=== PATIENT | male | born 1975 | race Caucasian/White ===

== ENCOUNTER 2022-09-16 15:08 | Outpatient (CLI) | payer OTHER, SELFPAY ==
[2022-09-16 11:42] LABS: Chloride* 106 mmol/L (96-114); Sodium* 141 mmol/L (135-149)
[2022-09-16 11:43] LABS: Potassium* 4.5 mmol/L (3.6-5.1)
[2022-09-16 11:45] LABS: Estimated Glomerular Filt Rate 95 ml/min
[2022-09-16 11:46] LABS: Blood Urea Nitrogen* 20 mg/dL (5-24); Calcium* 9.6 mg/dL (8.4-10.6); Carbon Dioxide* 28 mmol/L (20-32); Glucose* 85 mg/dL (60-115)
== END 2022-09-16 15:09 | disposition home or self-care (01) ==
PROVIDERS: PCP Family Medicine; Visit Provider Family Medicine
DX: I10 Essential (primary) hypertension (principal)
CPT/HCPCS: 80048

== ENCOUNTER 2025-02-14 07:30 | Outpatient (CLI) | payer OTHER, SELFPAY | END 2025-02-14 07:31 | disposition home or self-care (01) | LOC: NFLDREF 02-15 08:29 | PROVIDERS: PCP Family Medicine; Referring Provider Family Medicine; Visit Provider Family Medicine | DX: I10 Essential (primary) hypertension (principal) | CPT/HCPCS: 80053; 80061 ==

== ENCOUNTER 2025-03-15 15:54 | Emergency (ER) | payer OTHER, SELFPAY ==
[2025-03-15] VITALS (26 sets, daily range): BP systolic 111–156; BP diastolic 77–90; PULSE 98–135; RESP 16–37; TEMP 37.1; O2SAT 88–95; BMI 28.7
--- OUTSIDE RECORDS SUMMARY | 2025-03-15 15:56 | XMS_ITS | Clinical Summary ---
Author Organization [facility] Address [address] [place] [id number] Care Team Providers Care Pattern Cutter Name Role Phone Unavailable Primary Care Provider Unavailabl e Source Comments Patient records contain information from all sites at [facility]. For routine questions regarding patient records, call [phone] during business hours, M-F 8:00 AM - 5:00 PM Central Time. Record requests for emergency care only can be directed to [phone] at any time.[facility] Allergies Active Allergy Reactions Criticality Noted Date Comments Fentanyl Other (see comments) 07/15/2005 severe hiccups with vomiting Medications clopidogrel (PLAVIX) 75 mg tablet Take 1 tablet by mouth every morning. 8 Active losartan (COZAAR) 50 mg tablet Take 1 tablet by mouth daily. 8 Active busPIRone (BUSPAR) 10 mg tablet TAKE 2 TABLETS BY MOUTH TWICE DAILY FOR ANXIETY Active desvenlafaxine (PRISTIQ) 50 mg 24 hr tablet Take 50 mg by mouth every morning. Active gabapentin (NEURONTIN) 300 mg capsule Take 900 mg by mouth 3 (three) times a day. 3 Active lurasidone (LATUDA) 80 mg tablet Take 80 mg by mouth daily. with food 3 Active propranoloL (INDERAL LA) 60 mg 24 hr capsule Take 60 mg by mouth as needed. 3 Active scopolamine base (TRANSDERM SCOP) 1 mg over 3 days APPLY 1 PATCH TOPICALLY TO THE SKIN EVERY 72 HOURS NEEDED FOR MOTION SICKNESS 3 Active medical cannabis solution Medical Cannabis; 0.8 ml tincture taken once daily. 2 Active ARIPiprazole (ABILIFY) 5 mg tablet Take 5 mg by mouth once. 3 Active Active Problems Problem Noted Date Diagnosed Date Atrial Fibrillation Personal History 07/27/2023 Assessment & Plan (07/27/2023 9:13 AM CDT): Reports that he developed atrial fibrillation over the summer. He had a ZIO patch in March 2023 that he reports returned indicating approximately 150 events of atrial fibrillation. Not currently anticoagulated or on rate/rhythm control medications. He wears an apple watch that indicates 4-7% burden atrial fibrillation during waking hours. Embolus Pulmonary Personal History 07/27/2023 Assessment & Plan (07/27/2023 9:14 AM CDT): 2003. No further episodes. Depression Anxiety 07/27/2023 Assessment & Plan (07/27/2023 9:16 AM CDT): Treated with BuSpar, Pristiq, gabapentin, Latuda, and propranolol. He will continue all of the above perioperatively. He had been using medical cannabis however is no longer using. Solitary Kidney Acquired 05/08/2020 Assessment & Plan (07/27/2023 8:48 AM CDT): In the course of repair of a lower abdominal aneurysm patient underwent a left nephrectomy Cardiomegaly 05/08/2020 Assessment & Plan (07/27/2023 9:22 AM CDT): Per echo 05/2023: Normal left ventricular size, mildly increased wall thickness, normal global systolic function, calculated EF of 57%. He has noted that he has been short of breath. This is a longstanding symptom for him however has been worse in the past year. He has seen his retail account executive with these concerns and has had an appropriate work up without findings that would preclude him from his upcoming procedure. Peripheral Vascular Disease 05/08/2020 Assessment & Plan (07/27/2023 8:52 AM CDT): he had bilateral subclavian dissections requiring stent placement and carotid subclavian bypass on the right, with carotid subclavian bypass on the left with Amplatz plug placed proximally. He has a known stenosis of the proximal anastomosis of the left carotid subclavian bypass. Due to this he has had chronic left arm exertional fatigue. No evidence of subclavian steal or presyncopal symptoms. Marfan Syndrome, Unspecified 05/08/2020 Vitrectomy Status Post 12/07/2018 Sleep Apnea Unspecified 11/30/2018 Overview (11/30/2018): has not been using his CPAP Assessment & Plan (07/27/2023 8:47 AM CDT): Not using CPAP Detachment Retinal With Multiple Defect Left 08/2019 Overview (11/26/2018): Added automatically from request for surgery [id number] Assessment & Plan (07/27/2023 8:46 AM CDT): Scheduled for above procedure 08/07/2023 Subluxation Lens Right 05/10/2018 Intraocular Lens Implant Status Post 05/10/2018 Abdominal Aortic Aneurysm Repair Status Post Assessment & Plan (07/27/2023 9:17 AM CDT): He has had and arch repair in 2004 with and extent II thoracoabdominal repair done in 2008. He follows with both Cardiology and vascular at outside facilities. Per the most recent notes all of his critical vessels remain patent and the posterior visceral aortic aneurysm of the area of anastomoses seems unchanged. He is taking Plavix on a daily basis. He will hold 5 days prior to his upcoming procedure. Last dose will be 08/01/2023. 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 0 11/26/2018 Marfan Syndrome, Unspecified 06/24/2005 07/27/2023 Immunizations Immunization Administration Dates Next Due influenza vaccine quad (FLUZ ONE/FLUARIX) (6 months and older)(PF) 07/30/2018,08/14/2015 Family History Medical History Relation Name Comments Anxiety disorder Father Bethel Depression Father Bethel No Known Problems Father's Brother No Known Problems Father's Sister No Known Problems Maternal Grandfather No Known Problems Maternal Grandmother Anxiety disorder Mother Jessi Breast cancer Mother Jessi Depression Mother Jessi Psychiatric Mother Jessi Suicide Attempts Mother Jessi Thyroid disease Mother Jessi Cancer No Known Problems Mother's Brother No Known Problems Mother's Sister No Known Problems Paternal Grandfather Cataracts Paternal Grandmother Otis Orchards Hyperlipidemia Paternal Grandmother Otis Orchards High Amblyopia Neg Hx Blindness Neg Hx Glaucoma Neg Hx Macular degeneration Neg Hx Retinal degeneration Neg Hx Retinal detachment Neg Hx Strabismus Neg Hx Vision loss Neg Hx Relation Name Status Comments Father Bethel Father's Brother Father's Sister Maternal Grandfather Maternal Grandmother Mother Jessi Mother's Brother Mother's Sister Paternal Grandfather Paternal Grandmother Sreene Social History Tobacco Use Types Packs/Day Years Used Date Smoking Tobacco: Former Cigarettes 0.8 10 2004 Smokeless Tobacco: Former Tobacco Cessation:Counseling Given: Not Answered Alcohol Use Standard Drinks/Week Comments Yes 4 (1 standard drink = 0.6 oz pur e alcohol) Overall Financial Resource Strain (CARDIA) Answe r Date Recorded How hard is it for you to pa y for the very basics like food, housing, medical care, and heating? Somewhat hard 07/27/2023 Exercise Vital Sign Answer Date Recorde d On average, how many days pe r week do you engage in moderate to strenuous exercise (like a brisk walk)? 0 days 07/27/2023 On average, how many minutes do you engage in exercise at this level? 0 min 07/27/2023 Hunger Vital Sign Answer Date Recorded Within the past 12 months, y ou worried that your food would run out before you got the money to buy more. Never true 07/27/20 Within the past 12 months, t he food you bought just didn't last and you didn't have money to get more. Never true 07/27/2023 PRAPARE - Transportation Answer Date Re corded In the past 12 months, has l ack of transportation kept you from medical appointments or from getting medications? No 07/16 In the past 12 months, has l ack of transportation kept you from meetings, work, or from getting things needed for daily living? No 07/27/2023 Nutrition Answer Date Recorded On average, how many serving s of fruits and vegetables do you eat per day (serving size is equal to 1 cup or approximately the size of a tennis ball)? 0-2 07/27/2023 Dental Answer Date Recorded Dental: Regular Dentist No 07/27/20 Employment Answer Date Recorded Employment status Employed and actively working without restrictions 07/27/2023 Housing Stability Answer Date Recorded What is your living situation today? [facility] 07/27/2023 Sex and Gender Information Value Date Recorded Sex Assigned at Male 04/09/2018 11:08 PM CDT Legal Sex Male 7:17 AM [employer] Gender Identity Male 04/09/2018 11:08 PM CDT Sexual Orientation Straight 04/09/2018 11 :08 PM CDT Last Filed Vital Signs Vital Sign Reading Time Taken Comments Blood Pressure 146/83 08/07/2023 2:15 PM CDT Pulse 57 08/07/2023 2:15 PM CDT Temperature 36.5 C (97.7 F) 08/07/2023 2:15 PM CDT Respiratory Rate 14 08/07/2023 2:15 PM CDT Oxygen Saturation 94% 08/07/2023 2:15 PM CDT Inhaled Oxygen Concentration - - Weight 118 kg (259 lb 7.7 oz) 08/07/2023 10:20 A M CDT Height 215.9 cm (7' 1) 08/07/2023 10:20 AM CDT Body Mass Index 25.25 08/07/2023 10:20 AM CDT Plan of Treatment Health Maintenance Due Date Last Done Comments CT Colonography 1977 Cologuard 1977 Colonoscopy 1977 Colorectal Cancer Screening 1977 FIT 1977 HIV Screening 1977 Hepatitis C Screening 1977 Office Visit for Blood Pressure Check / Re-check 1977 COVID-19 Vaccine ( season) 2024 09/06/2023, 08/14/2022, 09/18/2021, Additional history exists Influenza Vaccine (#1) 2024 , 08/14/2022, 08/25/2020, Additional history exists Depression Screening (Annual PHQ-2) 10/16/2024 Creatinine Level (Kidney Function Test) 05/28/2025 05/28/2024, 01/03/2024, 10/30/2023, Additional history exists Potassium Level 05/28/2025 05/28/2024, 03/2 , 10/30/2023, Additional history exists Sodium Level 05/28/2025 05/28/2024, 03/2 , 10/30/2023, Additional history exists Fasting Glucose for Diabetes Screening 05/28/2027 05/28/2024, 01/03/2024, 10/30/2023, Additional history exists Lipid (Cholesterol) Screening 01/02/2029 01/03/2024, 10/30/2023, 04/30/2012 DTaP,Tdap,and Td Vaccines (5 - Td or Tdap) 12/10/2029 12/10/2019, 07/02/2018, 09/20/2017, Additional history exists Hepatitis B Vaccines Completed 08/08/2008, 05/07/2008, 03/25/2008 IPV Vaccines Aged Out No longer eligi ble based on patient's age to complete this topic Pneumococcal vaccine (0-49 years) Aged Out No longer eligible based on patient's age to complete this topic Medical Devices Implanted Type Area Manager Drug Safety Device Identifier Shelf Expiration Date Model / Serial / Lot Aptos Michele Fuzzy 1 X 1 - [place] [id number] Implanted:Qty: 1 on 07/15/2005 Mesh or Patch [employer] Description:Device Manufactu rer - DTT. Device Status Text - [id number]-1667. LEXIS Data - [id number]. Aptos Michele Fuzzy 6 X 1 - Beck[place] [id number] Implanted:Qty: 1 on 07/15/2005 Mesh or Patch Impra Description:Device Manufactu rer - Impra. Device Status Text - [id number]-[id number]. Aptos Michele Fuzzy 6 X 1 - [place] [id number] Implanted:Qty: 3 on 10/24/2008 Mesh or Patch Impra Description:Device Manufactu rer - Impra. Device Status Text - [id number]-1665. Rng Opt [facility] 11 - [id number] - [id number] Implanted:Qty: 1 on 04/03/2018 by Sean Smith M.D. at [facility] Ocular (Eye) Implant [facility] 11/13/2020 MR-2L / [id number] / [id number] Lens Acr Sa60at Ant +25.0d - [id number] - [id number] Implanted:Qty: 1 on 04/03/2018 by Sean Smith M.D. at [facility] Ocular Lens [employer] 11/15/2022 SA60AT.2 50 / [id number] / Intraocular Lens Implanted:Qty: 1 on 08/07/2023 by Sumanth Goldman M.D. at [facility] Ocular Lens Right: Eye [employer]. [id number] / / [id number] Inter-Rolf Graft Str. Woven 32m X 30 Cm - [place] [id number] Implanted:Qty: 1 on 07/15/2005 Vascular Graft [employer] Description:Device Manufactu rer - [employer]. Device Status Text - [id number]. Arch Aortic 26mm - [place] [id number] Implanted:Qty: 1 on 07/15/2005 Vascular Graft [employer] Description:Device Manufactu rer - [employer]. Device Status Text - [id number]. Inter-Rolf Knit Bifur. 24m X 12 50cm - Beckman [id number] Implanted:Qty: 1 on 10/24/2008 Vascular Graft Other/Legacy - See Implant Description [place] Description:Device Manufactu rer - [employer] Body Location - Other. Vascular. Device Status Text - [id number]. Gelsoft-Str 8x30m - Beckman [id number] Implanted:Qty: 1 on 10/24/2008 Vascular Graft Other/Legacy - See Implant Description [employer] Description:Device Manufactu rer - [employer]. Body Location - Other. Left. Device Status Text - [id number]. Hemashield Woven-Str 26 X 30 - Beckman [id number] Implanted:Qty: 1 on 10/24/2008 Vascular Graft Other/Legacy - See Implant Description Other/Legacy - See Implant Description Description:Device Manufactu rer - [employer]. Body Location - Other. Vascular. Device Status Text - [id number]. Hemashield Str. 7 X 60 - Beckman [id number] Implanted:Qty: 1 on 10/24/2008 Vascular Graft Other/Legacy - See Implant Description Other/Legacy - See Implant Description Description:Device Manufactu rer - [employer]. Body Location - Other. Vascular. Device Status Text - [id number]. Gelweave Trifurcated 16 X 7 X 8 - Beckman [id number] Implanted:Qty: 1 on 10/24/2008 Vascular Graft Other/Legacy - See Implant Description [employer] Description:Device Manufactu rer - [employer]. Body Location - Other. Vascular. Device Status Text - [id number]. Graft Hemagard 10mm X 20cm Knit - Beckman [id number] Implanted:Qty: 1 on 08/10/2015 Vascular Graft Other/Legacy - See Implant Description [employer] Description:Device Manufactu rer - [employer]. Body Location - Other. Vascular. Device Status Text - [id number]. Graft Excluder 12 X 14cm Contralaterals - Beckman [id number] Implanted:Qty: 1 on 08/10/2015 Vascular Graft Other/Legacy - See Implant Description [employer] Description:Device Manufactu rer - [employer] Body Location - Other. Vascular. Device Status Text - [id number]. Graft Hemagard 8mm X 70cm Knit - Beckman [id number] Implanted:Qty: 1 on 09/28/2015 Vascular Graft Other/Legacy - See Implant Description [employer]rium Description:Device Manufactu rer - [employer]. Body Location - Other. Vascular. Device Status Text - [id number]. Plug Vascular Amplatz Ii 12mm - Beckman [id number] Implanted:Qty: 1 on 09/28/2015 Vascular Other Other/Legacy - See Implant Description Other/Legacy - See Implant Description Description:Device Manufactu rer - [employer]. Body Location - Other. Vascular. Device Status Text - [id number]. Plug Vascular Amplatz Ii 12mm - Beckman [id number] Implanted:Qty: 1 on 09/28/2015 Vascular Other Other/Legacy - See Implant Description Other/Legacy - See Implant Description Description:Device Manufactu rer - [employer]. Body Location - Other. Vascular. Device Status Text - [id number]. Procedures Procedure Name Priority Date/Time Associated Diagnosis Comments BASIC METABOLIC PANEL, S/P Routine 08/02/2023 11:26 AM CDT Preanesthetic Medical Exam Marfan Syndrome, Unspecified (HCC) Hypertensive Heart Disease Without Heart Failure LIPID PANEL, S Routine 04/30/2012 11:11 AM CDT from Last 3 Months or Most Recently Relevant to Health Maintenance Results * (ABNORMAL) Basic Metabolic Panel (08/02/2023 11:26 AM CDT) [facility] Potassium, S 4.8 3.6 - 5.2 mmol/L 08/02/2023 12:54 PM CDT DTL Sodium, S 140 135 - 145 mmol/L 08/02/2023 12:54 PM CDT DTL Chloride, S 103 98 - 107 mmol/L 08/02/2023 12:54 PM CDT DTL Bicarbonate, S 28 22 - 29 mmol/L 08/02/2023 12:54 PM CDT DTL Anion Gap 9 7 - 15 08/02/2023 12:54 PM CDT DTL BUN (Blood Urea Nitrogen), S 15 8 - 24 mg/dL 08/02/2023 12:54 PM CDT DTL Creatinine 1.37(H) 0.74 - 1.35 mg/dL 08/02/2023 12:54 PM CDT DTL Estimated GFR (eGFR) 64 >=60 mL/min/BSA 08/02/2023 12:54 PM CDT DTL Comment: Estimated GFR calculated using the 2020 CKD_EPI creatinine equation. Calcium, Total, S 10.0 8.6 - 10.0 mg/dL 08/02/2023 12:54 PM CDT DTL Glucose, S 83 70 - 140 mg/dL 08/02/2023 12:54 PM CDT DTL Blood (Blood, Venous) 08/02/2023 11:26 AM CDT 08/02/2023 12:37 PM CDT María Hernandez APRN, C.N.P., M.S.N. LAB BLOOD ADD-O N Final Result [facility] [address] [place] [address], [facility] [address] [place] [address] * Lipid Panel (04/30/2012 11:11 AM CDT) Cholesterol, Total 152 SeeComment MG/DL [facility] Comment: Reference Range: NCEP guidelines (ages 18y and up) Desirable: <200 Borderline high: 200-239 High: > or =240 Triglycerides 92 SeeComment MG/DL [facility] Comment: Reference Range: NCEP guidelines (ages 18y and up) Normal: <150 Borderline high: 150-199 High: 200-499 Very high: > or =500 Cholesterol, HDL, S 46 SeeComment MG/DL [facility] Comment: Reference Range: NCEP guidelines (ages 18y and up) Low: <40 Normal: 40-59 High : > or =60 Calculated LDL 88 SeeComment MG/DL [facility] Comment: Reference Range: NCEP guidelines (ages 18y and up) Optimal: <100 Near Optimal: 100-129 Borderline high: 130-159 High: 160-189 Very high: > or =190 Cholesterol, Non-HDL, Calculated 106 SeeComment MG/DL [facility] Comment: Reference Range: NCEP guidelines Desirable: <130 Borderline high: 130-159 High: 160-189 Very high: > or =190 04/30/2012 11:1 1 AM CDT 04/30/2012 11:11 AM CDT us Rom Morales M.D. 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 See document viewer. * Full Code (Latest Code Status on File) Date Activated Date Inactivated Comments 11/30/2018 6:04 PM 11/30/2018 9:09 PM Question Answer Comments Full Code: Discussed
--- OUTSIDE RECORDS SUMMARY | 2025-03-15 15:56 | XMS_ITS | Clinical Summary ---
Author Organization [facility] Address [address] [place] [address] Care Team Providers Care Open Hearth Melter Name Role Phone Jaime Jon MD Primary Care Provider [phone] Allergies Active Allergy Reactions Criticality Noted Date Comments Fentanyl Vomiting 09/20/2017 Induced with hiccups Medications clopidogrel (PLAVIX) 75 mg tablet Take 75 mg by mouth once daily. Active losartan (COZAAR) 50 mg tablet Take 1 Tablet (50 mg) by mouth once daily. 0 12/21/2021 Active medication order [facility] [employer]; 0.8 ml tincture taken once daily. 0 12/21/2021 Active LORazepam (ATIVAN) 0.5 mg tabIndications: BRITTANY (generalized anxiety disorder) Take 1-2 Tablets (0.5-1 mg) by mouth once daily if needed for Anxiety. 20 Tablet 08/01/2024 Active ARIPiprazole (Abilify) 10 mg tabletIndicatio ns:Recurrent major depressive disorder, in partial remission Take 1 Tablet (10 mg) by mouth once daily. 90 Tablet 02/05/2025 Active buPROPion (Wellbutrin XL) 300 mg Extended-Releas e tabletIndicatio ns:Recurrent major depressive disorder, in partial remission Take 1 Tablet (300 mg) by mouth once daily. 90 Tablet 02/05/2025 Active busPIRone 30 mg tabletIndicatio ns:BRITTANY (generalized anxiety disorder) Take 1 Tablet (30 mg) by mouth two times daily. 180 Tablet 02/05/2025 Active desvenlafaxine succinate (Pristiq) 100 mg extended release tabletIndicatio ns:Recurrent major depressive disorder, in partial remission,BRITTANY (generalized anxiety disorder) Take 1 Tablet (100 mg) by mouth once daily in the morning. 90 Tablet 02/05/2025 Active gabapentin 300 mg capsuleIndicati ons:BRITTANY (generalized anxiety disorder) Take 600 mg in the morning, 900 mg in the afternoon, and 600 mg at bedtime. 90 day supply 630 Capsule 02/05/2025 Active Active Problems Problem Noted Date Diagnosed Date Recurrent major depressive disorder, in partial remission 02/05/2025 BRITTANY (generalized anxiety disorder) 02/05/2025 Marfan syndrome 05/08/2020 LVH (left ventricular hypertrophy) 05/08/2020 PVD (peripheral vascular disease) 05/08/2020 HTN (hypertension) 05/08/2020 S/p nephrectomy 05/08/2020 Encounters Date Type Department Care Team Description 02/05/2025 8:00 AM CDT Telemedicine [facility] [address] [place] [phone] Renu Hoyos, INFORMATION ASSURANCE ENGINEER Telehealth ([place]/); Medication Management 01/31/2025 Travel from Last 3 Months Immunizations Immunization Administration Dates Next Due COVID-19 vaccine (Moderna 100mcg/0.5mL) PF, MDV 09/18/2021 Hepatitis B (Adult) 08/08/2008,05/07/2008,2007 Influenza, IIV3 (Age >=3 years) 07/12/2012 Influenza, IIV4 08/25/2020, 9,07/30/2018,2016,08/14/2015 Influenza, IIV4 (=>6mos) MDV 08/17/2019,07/27/20 16 Influenza,CCIIV4 PRESERV FREE 08/14/2022 MMR 03/25/2008 Tdap 12/10/2019, 8,09/20/2017,2007 Social History Tobacco Use Types Packs/Day Years Used Date Smoking Tobacco: Former Cigarettes 0.5 10 Smokeless Tobacco: Never Tobacco Cessation:Counseling Given: Not Answered Alcohol Use Standard Drinks/Week Comments Yes 1 (1 standard drink = 0.6 oz pur e alcohol) 1x a week PHQ-2 Answer Date Recorded PHQ-2 TOTAL SCORE 1 02/05/2025 Financial Resource Strain Answer Date R ecorded Difficulty of Paying Living Expenses Not on file 10/16/2021 Difficulty of Paying Living Expenses Not on file 10/16/2021 Sex and Gender Information Value Date Recorded Sex Assigned at Not on file 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 Gender Identity Not on file Sexual Orientation Not on file Obstetrics History Last Filed Vital Signs Vital Sign Reading Time Taken Comments Blood Pressure 95/66 07/25/2023 9:01 AM CDT Pulse 84 07/25/2023 9:01 AM CDT Temperature 36.7 C (98.1 F) 09/20/2017 2:35 PM 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 Respiratory Rate 16 07/25/2023 9:01 AM CDT Oxygen Saturation 97% 07/25/2023 9:01 AM CDT Inhaled Oxygen Concentration - - Weight 119.7 kg (263 lb 12.8 oz) 07/25/2023 9:01 AM CDT Height 213.4 cm (7') 03/21/2023 2:43 PM CDT Body Mass Index 26.29 03/21/2023 2:43 PM CDT Plan of Treatment Upcoming Encounters Date Type Department Care Team (Late st Contact Info) Description 04/22/2025 9:00 AM CDT Office Visit [facility] at [address] [place] [address] Renu Hoyos, INFORMATION ASSURANCE ENGINEER [address] [place] [id number] Health Maintenance Due Date Last Done Comments HIV for age 15-65 1992 Hepatitis C screening for ag e 18-79 1995 Pneumococcal series for age 6-49 (1 of 2 - PCV) 1996 Colonoscopy through age 75 2022 BMI (ht and wt on same day) for age 18+ 03/21/2024 03/21/2023, 05/07/2021, 05/29/2020 COVID-19 vaccine series ( season) 2024 09/06/2023, 08/14/2022, 09/18/2021, Additional history exists Influenza Vaccine (Season Ended) 2025 08/14/2022, 08/25/2020, 08/17/2019, Additional history exists Depression screening for age 12+ 02/05/2026 02/05/2025, 10/08/2024, 08/01/2024, Additional history exists Lipids for age 45-75 01/02/2029 01/03/2024, 10/30/19 24 Tetanus booster 12/10/2029 12/10/2019, 06/16, 09/20/2017, Additional history exists Hepatitis B series for 19+ Completed 08/08, 05/07/2008, 03/25/2008 Tdap Completed 12/10/2019, 06/16, 09/20/2017, Additional history exists Procedures Procedure Name Priority Date/Time Associated Diagnosis Comments LIPID PANEL Routine 01/03/2024 9:13 AM CDT BRITTANY (generalized anxiety disorder) from Last 3 Months or Most Recently Relevant to Health Maintenance Results * LIPID PANEL (01/03/2024 9:13 AM CDT) CHOLESTEROL,TOTAL 166 100 - 199 mg/dL 01/03/2024 4:41 PM CDT [facility] Comment: Cholesterol, Total Reference Ranges Desirable <200 mg/dL Borderline 200-239 mg/dL High >=240 mg/dL TRIGLYCERIDES 73 <150 mg/dL 01/03/2024 4:41 PM CDT [facility] HDL CHOLESTEROL 58 >40 mg/dL 4:41 PM CDT [facility] NON-HDL CHOLESTEROL 108 <145 mg/dl 01/03/2024 4:41 PM CDT [facility] CHOL/HDL RATIO 2.86 <4.50 01/03/2024 4:41 PM CDT [facility] LDL CHOLESTEROL 93 <=130 mg/dL 01/03/2024 4:41 PM CDT [facility] VLDL CHOLESTEROL 15 <=30 mg/dL 01/03/2024 4:41 PM CDT [facility] PROVIDER ORDERED STATUS RANDOM 01/03/2024 4:41 PM CDT [facility] Blood BLOOD SPECIMEN / Unknown Venipuncture / Unknown 01/03/2024 9:13 AM CDT 01/03/2024 9:14 AM CDT us Renu Hoyos NP CHEMISTRY Final Result [facility] [address] [place] [id number], [place] from Last 3 Months or Most Recently Relevant to Health Maintenance Insurance [facility]ERS [facility] ATTN: JOSSELINE CANTOR [address] COUNTS IN[facility] [id number] Care Teams Open Hearth Melter Relationship Specialty Start Date End Date Jaime Jon MD [address] [place] [phone] PCP - General Family Practice 09/20/17
--- OUTSIDE RECORDS SUMMARY | 2025-03-15 15:56 | XMS_ITS | Encounter Summary ---
Author Organization [facility] Address [address] [place] [id number] Care Team Providers Care Tooling Specialist Name Role Phone Unavailable Primary Care Provider Unavailabl e Encounter Details Date Type Department Care Team (Late st Contact Info) Description 02/05/2018 Historical Ophthalmology [facility] Sean Smith M.D. 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 - 02/05/2018 9:45 AM CDT Eye General CHIEF COMPLAINT blurred vision HISTORY OF PRESENT ILLNESS Blurred vision; both eyes (left > right); x 2 months; slowly progressive; symptoms are moderate;all distances affected. Has flashes and floaters, intermittent, for forever; denies paris diplopia, primarily overlappingghost images. HAND SHAPER: Marfan syndrome. Vision has worsened OS in last few months, No trauma. Sees ghost images. No pain. Constant and interfering with work and driving. IMPRESSION / REPORT / PLAN 05 Feb 2018 [facility] both eyes: Lens appears displaced superior temporal Right eye. Lens slightly displaced superiorly left eye. SH topography acquired today, both....shows high regular astigmatism. #1 Cataract, left eye Visually significant. Complicated by #2, and this increases risk. Discussed Plan: Get IOLs and SL photos. Determine anterior vs. posterior approach based on axial length. Will get JOSE LUIS to assess for general anesthesia, and will discuss with retina. If surgery has to be at [facility] because of cardiac issues, then will proceed with combined approach, otherwise can consider anterior approach with Cionni ring. #2 Subluxated crystalline lens, both eyes Secondary to #3 #3 Marfan Syndrome On Plavix for previous cardiovascular surgery Will get JOSE LUIS since will need general anesthesia and to determine if surgery can be at [facility] or if must be at [facility]. 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
--- NOTE | 2025-03-15 16:22 | ED.DIZZY ---
HPI - Dizziness General Chief Complaint: Dizziness/Vertigo Stated Complaint: High right rate, light headed, sore, dizzy Time Seen by Provider: 03/15/25 15:57 History of Present Illness HPI Narrative: This 49-year-old male comes in reporting rapid heart rate and lightheadedness. These symptoms began upon awakening at about 7:00 a.m. this morning. He does not report any chest pain or other symptoms. He does have Marfan is a syndrome and states that he had his blood checked a couple weeks ago with normal results. He does not report any vertigo symptoms but does have lightheadedness. He does not report any shortness of breath or diaphoresis. Related Data Home Medications ?Medication ?Instructions ?Recorded ?Confirmed buspirone 30 mg tablet 30 mg PO BID 01/25/24 02/26/25 desvenlafaxine succinate 100 mg 100 mg PO DAILY 01/25/24 02/26/25 tablet,extended release 24 hr lorazepam 0.5 mg tablet 0.5 mg PO DAILY 01/25/24 02/26/25 propranolol 60 mg capsule,24 60 mg PO DAILY PRN 01/25/24 02/26/25 hr,extended release aripiprazole 5 mg tablet 10 mg PO QDAY 02/26/25 02/26/25 bupropion HCl 300 mg 24 hr tablet, 300 mg PO QAM 02/26/25 02/26/25 extended release (Wellbutrin XL) gabapentin 300 mg capsule 600 mg PO BID 02/26/25 02/26/25 Previous Rx's ?Medication ?Instructions ?Recorded scopolamine base 1 mg over 3 days 1 patch transdermal Q72H PRN 10/30/24 transdermal patch motion sickness #4 ea amoxicillin 500 mg capsule 2,000 mg (4 x 500 mg) PO ONCE #12 02/26/25 caps clopidogrel 75 mg tablet 75 mg PO QDAY #90 tabs 02/26/25 losartan 50 mg tablet 50 mg PO QDAY #90 tabs 02/26/25 prednisone 20 mg tablet 40 mg (2 x 20 mg) PO QDAY #10 tabs 02/26/25 Allergies Allergy/AdvReac Type Severity Reaction Status Date / Time fentanyl AdvReac Intermediate Verified 02/26/25 07:14 Review of Systems Status of ROS: Reports: 10 or more systems reviewed and unremarkable except as noted in History and below Narrative: Constitutional: No fevers, no weight gain or loss. Eyes: No discharge. No vision changes. HENT: No congestion, no sore throat, no ear pain. Cardiovascular: No chest pain, no palpitations. Increased heart rate. Respiratory: No shortness of breath, no wheezes, no cough. Gastrointestinal: No abdominal pain, no vomiting, no diarrhea. Genitourinary: No dysuria, no hematuria. Musculoskeletal: Normal range of motion. Skin: No rashes, no pruritis. Neurological: No weakness, sensory change, speech change. He reports lightheadedness symptoms. Endo/Heme/Allergies: No bruising or bleeding. No polydipsia. Pysch: no suicidality, no anxiety, no insomnia. All other systems reviewed and are negative. [facility] Medical History (Updated 03/15/25 @ 18:52 by Connor Marin MD) Aortic dissection ?I71.00 - Dissection of unspecified site of aorta (ICD-10) Aneurysm ?I72.9 - Aneurysm of unspecified site (ICD-10) DVT (deep venous thrombosis) (2003) ?I82.409 - Acute embolism and thrombosis of unspecified deep veins of unspecified lower extremity (ICD-10) Pulmonary embolism (2003) ?I26.99 - Other pulmonary embolism without acute cor pulmonale (ICD-10) Pericarditis ?I31.9 - Disease of pericardium, unspecified (ICD-10) Surgical History (Updated 11/08/24 @ 10:11 by Aurea Espitia) History of left nephrectomy ?Z90.5 - Acquired absence of kidney (ICD-10) History of cardiovascular surgery (2004) ?Z98.890 - Other specified postprocedural states (ICD-10) S/P vasectomy (05/20/20) ?Z98.52 - Vasectomy status (ICD-10) History of spinal surgery (2020) ?Z98.890 - Other specified postprocedural states (ICD-10) History of eye surgery ?Z98.890 - Other specified postprocedural states (ICD-10) Family History (Updated 11/08/24 @ 09:57 by Aurea Espitia) Mother Thyroid cancer Breast cancer Father Raynauds syndrome Son Autism Social History (Updated 02/26/25 @ 12:56 by Emerald Meza~FORKLIFT PICKER, FORKLIFT PICKER) What is your current living situation?: I presently have a place to live Problems where you live: no known problems In the past 12 months, utilities in danger of being shut off: no In past 12 months, lack of transportation kept you from medical appts, meetings, work, or getting things needed for daily living: no In the past 12 mos, have been you worried that your food would run out before you had money to buy more?: never true In the past 12 mos, the food you bought just didn't last and you didn't have money to buy more?: never true Smoking Status: Never smoker How often does anyone, including family, friends and others, physically hurt you: never How often does anyone, including family, friends and others, insult or talk down to you: never How often does anyone, including family, friends and others, threaten you with harm: never How often does anyone, including family, friends and others, scream or curse at you: rarely Health Related Social Needs: Other personal risk factors, not elsewhere classified (Z91.89) Exam Narrative: Exam Narrative: Constitutional: Well-developed, well-nourished, no acute distress. HEENT: Normocephalic, atraumatic. Neck: Normal range of motion. Nontender. Supple. Heart: Regular. No murmurs. Tachycardia. Intact distal pulses. Lungs: Clear to auscultation. No chest discomfort. No wheezes, rhonchi, or rales. Abdomen: Normal bowel sounds. Nontender. No rebound tenderness. Genitalia: Deferred. Back: No midline tenderness. Normal range of motion. Extremities: Normal range of motion. No injury. Skin: Intact. No rash. Warm. No erythema or pallor. Neurologic: No altered sensation. No weakness. Alert and oriented. Psychiatric: No suicidality. No anxiety or depression. No insomnia. Nursing notes and vitals signs are reviewed. Const: Vital Signs, click to edit/add: Vital Signs - 24 hr 03/15/25 15:57 03/15/25 16:05 03/15/25 16:06 Temperature 98.8 F Pulse Rate 135 H Pulse Rate [Pulse Oximeter] 132 H Respiratory Rate 28 H 26 H 32 H Blood Pressure 124/84 Blood Pressure [Le ft Upper Arm] 117/88 Blood Pressure [Ri ght Upper Arm] 156/90 H Pulse Oximetry 89 90 Oxygen Delivery Me thod Room Air Oxygen Flow Rate 03/15/25 16:15 03/15/25 16:16 03/15/25 16:19 Temperature Pulse Rate 132 H Pulse Rate [Pulse Oximeter] Respiratory Rate 37 H Blood Pressure Blood Pressure [Le ft Upper Arm] Blood Pressure [Ri ght Upper Arm] Pulse Oximetry 93 88 92 Oxygen Delivery Me thod Room Air Nasal Cannula Oxygen Flow Rate 2 03/15/25 16:30 03/15/25 16:45 03/15/25 16:51 Temperature Pulse Rate 131 H 126 H 127 H Pulse Rate [Pulse Oximeter] Respiratory Rate 24 31 H 32 H Blood Pressure 126/88 Blood Pressure [Le ft Upper Arm] Blood Pressure [Ri ght Upper Arm] Pulse Oximetry 93 94 92 Oxygen Delivery Me thod Oxygen Flow Rate 03/15/25 16:55 03/15/25 17:00 03/15/25 17:02 Temperature Pulse Rate 115 H 99 99 Pulse Rate [Pulse Oximeter] Respiratory Rate 33 H 16 24 Blood Pressure 111/77 139/81 Blood Pressure [Le ft Upper Arm] Blood Pressure [Ri ght Upper Arm] Pulse Oximetry 93 94 93 Oxygen Delivery Me thod Oxygen Flow Rate 03/15/25 17:03 03/15/25 17:12 03/15/25 17:15 Temperature Pulse Rate 99 99 100 Pulse Rate [Pulse Oximeter] Respiratory Rate Blood Pressure 134/82 Blood Pressure [Le ft Upper Arm] Blood Pressure [Ri ght Upper Arm] Pulse Oximetry 94 93 92 Oxygen Delivery Me thod Oxygen Flow Rate 03/15/25 17:18 03/15/25 17:22 03/15/25 17:30 Temperature Pulse Rate 98 101 H Pulse Rate [Pulse Oximeter] Respiratory Rate Blood Pressure 134/80 Blood Pressure [Le ft Upper Arm] Blood Pressure [Ri ght Upper Arm] Pulse Oximetry 93 93 94 Oxygen Delivery Me thod Room Air Oxygen Flow Rate 03/15/25 17:33 03/15/25 17:45 03/15/25 18:00 Temperature Pulse Rate 99 101 H 102 H Pulse Rate [Pulse Oximeter] Respiratory Rate 18 Blood Pressure 129/82 Blood Pressure [Le ft Upper Arm] Blood Pressure [Ri ght Upper Arm] Pulse Oximetry 94 94 95 Oxygen Delivery Me thod Oxygen Flow Rate 03/15/25 18:02 03/15/25 18:15 Temperature Pulse Rate 104 H 103 H Pulse Rate [Pulse Oximeter] Respiratory Rate 19 Blood Pressure 143/87 H Blood Pressure [Le ft Upper Arm] Blood Pressure [Ri ght Upper Arm] Pulse Oximetry 95 95 Oxygen Delivery Me thod Oxygen Flow Rate Course Vital Signs Vital signs: Initial Vital Signs Temperature 98.8 F 03/15/25 15:57 Temperature Source Temporal Artery Scan 03/15/25 15:57 Pulse Rate 132 H 03/15/25 15:57 Respiratory Rate 28 H 03/15/25 15:57 Blood Pressure 156/90 H 03/15/25 15:57 Blood Pressure Mean 112 H 03/15/25 15:57 Blood Pressure Position Sitting 03/15/25 15:57 Pulse Oximetry 89 03/15/25 15:57 Oxygen Delivery Method Room Air 03/15/25 15:57 Vital Signs Temperature 98.8 F 03/15/25 15:57 Pulse Rate 132 H 03/15/25 15:57 Respiratory Rate 28 H 03/15/25 15:57 Blood Pressure 156/90 H 03/15/25 15:57 Pulse Oximetry 89 03/15/25 15:57 Oxygen Delivery Method Room Air 03/15/25 15:57 Temperature 98.8 F 03/15/25 15:57 Pulse Rate 103 H 03/15/25 18:15 Respiratory Rate 19 03/15/25 18:02 Blood Pressure 143/87 H 03/15/25 18:02 Pulse Oximetry 95 03/15/25 18:15 Oxygen Delivery Method Room Air 03/15/25 17:18 Oxygen Flow Rate 2 03/15/25 16:19 Medications Administered Medications: Discontinued Medications Generic Name Dose Route Start Last Admin Trade Name Freq PRN Reason Stop Dose Admin Adenosine 6 mg 03/15/25 16:20 03/15/25 16:39 Adenosine 6 Mg/2ml Inj IVP 03/15/25 16:21 6 mg ONCE ONE Administration Diltiazem HCl 20 mg 03/15/25 16:42 03/15/25 16:50 Diltiazem 5 Mg/Ml Inj IVP 03/15/25 16:43 20 mg ONCE ONE Administration Sodium Chloride 1,000 mls @ 1,000 mls/hr 03/15/25 17:15 03/15/25 18:23 0.9 % Sodium Chloride 1000 Ml IV 03/15/25 18:14 Infused .Q1H GRACE Infusion MDM - Dizziness MDM Narrative Medical decision making narrative: This patient comes in reporting some lightheadedness and increased heart rate. EKG showed what looked to be like a sinus tachycardia or supraventricular tachycardia. An IV was established and the patient did receive 6 mg of adenosine which did his slow his heart temporary early and looked to be like an atrial fibrillation rhythm. He did then received 20 mg of diltiazem which slowed his heart down into the 90s and repeat EKG shows a sinus rhythm. Labs are acquired and these returned with normal results. In particular his troponin is at 0.01. The patient did receive a L of normal saline intravenously and I did also administer 1 oral tablet of metoprolol. He does have Marfan syndrome and history of peripheral vascular disease. I advised him to follow-up with his primary physician if needing further rate control management and of course he should return here if she returns to previous symptoms or worsens somehow. Lab Data Labs: Lab Results 03/15/25 03/15/25 Range/Units 16:05 16:20 WBC 13.31 H (4.50-11.00) K/uL RBC 4.92 (4.30-5.90) m/uL Hgb 13.9 (13.5-17.5) gm/dL Hct 41.1 (37.0-53.0) % MCV 84 (80-100) fL MCH 28 (26-34) pg MCHC 34 (32-36) gm/dL RDW Coeff of Oracio 13.0 (11.5-15.5) % Plt Count 297 (140-440) K/uL Neut % (Auto) 81.9 H (42.0-72.0) % Lymph % (Auto) 8.6 L (20-44) % Rutherford % (Auto) 7.0 (0.0-11.0) % Eos % (Auto) 0.6 (0.0-7.0) % Baso % (Auto) 0.3 (0.0-3.0) % Neut # (Auto) 10.90 H (1.7-7.0) K/uL Lymph # (Auto) 1.10 (0.90-2.90) K/uL R[place]ford # (Auto) 0.90 (0.00-0.90) K/UL Eos # (Auto) 0.10 (0.00-0.50) K/uL Baso # (Auto) 0.00 (0.00-0.30) K/uL Abs Immat Gran (auto) 0.20 (0.00-0.30) K/uL Imm/Tot Granulo (auto) 1.6 % Sodium 136 (135-149) mmol/L Potassium 4.3 (3.6-5.1) mmol/L Chloride 103 (96-114) mmol/L Carbon Dioxide 25 (20-32) mmol/L Anion Gap 8 (7-15) mEq/L BUN 27 H (5-24) mg/dL Creatinine 1.6 H (0.5-1.5) mg/dL Estimated Creat Clear 86.78 Estimated GFR 53 ml/min Glucose 105 (60-115) mg/dL Calcium 9.8 (8.4-10.6) mg/dL Magnesium 1.7 (1.5-2.6) mg/dL POC Troponin I 0.01 (0.01-0.04) ng/ml ECG Data Attestation: I personally reviewed and interpreted this ECG as follows: Interpretation: Sinus tachycardia, rate 134 beats per minute. There are no specific ST or T-wave abnormalities. Repeat EKG after diltiazem shows sinus rhythm with 1st degree AV block, rate 100 beats per minute. Discharge Plan Discharge Clinical Impression: Tachycardia Patient Disposition: Home, Self-Care Condition: Improved Additional Instructions: Continue current plans. Follow up with MD for ongoing management her return if symptoms are recurrent or worsening. Prescriptions: No Action buspirone 30 mg tablet 30 mg PO BID lorazepam 0.5 mg tablet 0.5 mg PO DAILY desvenlafaxine succinate 100 mg tablet extended release 24 hr 100 mg PO DAILY propranolol 60 mg capsule,extended release 24 hr 60 mg PO DAILY PRN aripiprazole 5 mg tablet 10 mg PO QDAY gabapentin 300 mg capsule 600 mg PO BID Rx Instructions: in addition to 300mg each afternoon bupropion HCl [Wellbutrin XL] 300 mg tablet extended release 24 hr 300 mg PO QAM prednisone 20 mg tablet 40 mg PO QDAY Qty: 10 4RF amoxicillin 500 mg capsule 2,000 mg PO ONCE Qty: 12 3RF Rx Instructions: Take 2000 mg 1 hour before dental procedure. clopidogrel 75 mg tablet 75 mg PO QDAY Qty: 90 3RF losartan 50 mg tablet 50 mg PO QDAY Qty: 90 3RF scopolamine base 1 mg over 3 days patch 3 day 1 patch transdermal Q72H PRN (Reason: motion sickness) Qty: 4 1RF Follow Up/Referrals: Jaime Jon MD [Primary Care Provider, Family Practice] [facility] Inst[facility]
[2025-03-15 16:26] LABS: Troponin, Point-of-Care* 0.01 ng/ml (0.01-0.04)
[2025-03-15 16:30] LABS: Basophils Percent Auto 0.3 % (0.0-3.0); Eosinophils Percent Auto 0.6 % (0.0-7.0); Hematocrit 41.1 % (37.0-53.0); Hemoglobin* 13.9 gm/dL (13.5-17.5); Immature Granulocytes Pct Auto 1.6 %; Lymphocytes Percent Auto 8.6 % (20-44); Mean Corpuscular HGB Conc 34 gm/dL (32-36); Mean Corpuscular Hemoglobin 28 pg (26-34); Mean Corpuscular Volume 84 fL (80-100); Neutrophils Percent Auto 81.9 % (42.0-72.0); Platelet Count* 297 K/uL (140-440); Red Blood Count 4.92 m/uL (4.30-5.90); White Blood Count* 13.31 K/uL (4.50-11.00)
[2025-03-15 16:32] LABS: Slide Review Reflex No
[2025-03-15] MEDS: ADENOSINE 6 MG/2ML INJ IVP (16:39)
[2025-03-15 16:43] LABS: Chloride* 103 mmol/L (96-114); Potassium* 4.3 mmol/L (3.6-5.1); Sodium* 136 mmol/L (135-149)
[2025-03-15 16:46] LABS: Anion Gap 8 mEq/L (7-15); Blood Urea Nitrogen* 27 mg/dL (5-24); Calcium* 9.8 mg/dL (8.4-10.6); Carbon Dioxide* 25 mmol/L (20-32); Creatinine* 1.6 mg/dL (0.5-1.5); Est. Creatinine Clearance* 86.78; Estimated Glomerular Filt Rate 53 ml/min; Glucose* 105 mg/dL (60-115); Magnesium* 1.7 mg/dL (1.5-2.6)
[2025-03-15] MEDS: dilTIAZem 5 MG/ML inj 20 MG IVP (16:50)
[2025-03-15] MEDS: 0.9 % SODIUM CHLORIDE 1000 ml 1,000 ML IV (17:26)
[2025-03-15] MEDS: METOPROLOL TARTRATE 25 MG TABLET PO (18:51)
--- OUTSIDE RECORDS SUMMARY | 2025-03-16 12:30 | XMS_ITS | Encounter Summary ---
Author Organization [facility] Address [address] [place] [address] Care Team Providers Care Implementation Engineer Name Role Phone Unavailable Primary Care Provider Unavailabl e Encounter Details Date Type Department Care Team (Late st Contact Info) Description 02/05/2018 Historical Ophthalmology RST OPH Sean Smith M.D. 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 Vision has worsened OS in [...] retina. If surgery has to be at [facility] because of cardiac issues, then will proceed with combined approach, otherwise can consider anterior approach with Cionni ring. #2 Subluxated crystalline lens, both eyes Secondary to #3 #3 Marfan Syndrome On Plavix for previous cardiovascular surgery Will get JOSE LUIS since will need general anesthesia and to determine if surgery can be at [facility] or if must be at [facility]. DIAGNOSIS #1 Cataract, left eye #2 Subluxated crystalline lens, both eyes #3 Marfan Syndrome CDM Reports - EYEGEN Id: [id number] Status: Fnl documented in this encounter Plan of Treatment Not on file documented as of this encounter Visit Diagnoses Not on filedocumented in this encounter Additional Health Concerns Assessment Noted Time PHQ-9 Depression Total Score: 22 016 7:52 AM HANDKERCHIEF SAMPLE CLERK documented as of this encounter
--- OUTSIDE RECORDS SUMMARY | 2025-03-16 12:30 | XMS_ITS | Clinical Summary ---
Author Organization [facility] Address [address] [place] [address] Care Team Providers Care Jack Frame Tender Name Role Phone Unavailable Primary Care Provider Unavailabl e Source Comments Patient records contain information from all sites at [facility]. For routine questions regarding patient records, call [phone] during business hours, M-F 8:00 AM - 5:00 PM Central Time. Record requests for emergency care only can be directed to [phone] at any time.[facility] Allergies Active Allergy Reactions Criticality Noted Date [...] the past year. 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 [...] Known Problems Paternal Grandfather Cataracts Paternal Grandmother [place] Hyperlipidemia Paternal Grandmother [place] High Amblyopia Neg Hx Blindness Neg Hx Glaucoma Neg Hx Macular degeneration Neg Hx Retinal degeneration Neg Hx Retinal detachment Neg Hx Strabismus Neg Hx Vision loss Neg Hx Relation Name Status Comments Father [place] Father's Brother Father's Sister Maternal Grandfather Maternal Grandmother Mother Jessi Mother's Brother Mother's Sister Paternal Grandfather Paternal Grandmother Serene Social History Tobacco Use Types Packs/Day Years [...] your living situation today? 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 Device Status Text - MESHPATCH-1667. LEXIS Data - [id number]. Hensley Michele Fuzzy 6 X 1 - Beckman 1665 Implanted:Qty: 1 on 07/15/2005 Mesh or Patch Impra Description:Device Manufactu rer - Impra. Device Status Text - MESHPATCH-1665. Hensley Michele Fuzzy 6 X 1 - [place] 1665 Implanted:Qty: 3 on 10/24/2008 Mesh or Patch Impra Description:Device Manufactu rer - Impra. Device Status Text - MESHPATCH-1665. Rng Opt [facility] 11 - [id number] - [id number] Implanted:Qty: 1 on 04/03/2018 by Sean Smith M.D. at [facility] Ocular (Eye) Implant [facility] 11/13/2020 MR-2L / [id number] / [id number] Lens Acr Sa60at Ant +25.0d - [id number] - [id number] Implanted:Qty: 1 on 04/03/2018 by Sean Smith M.D. at [facility] Ocular Lens [employer] 11/15/2022 SA60AT.2 50 / [id number] / Intraocular Lens Implanted:Qty: 1 on 08/07/2023 by Sumanth Goldman M.D. at [facility] Ocular Lens Right: Eye [employer] [id number] +250 / / [id number] Inter-Rolf Graft Str. Woven 32m X 30 Cm - Beck[place] [id number] Implanted:Qty: 1 on 07/15/2005 Vascular Graft [employer] Description:Device Manufactu rer - [employer]. Device Status Text - VASCGRAFT-36117. Arch Aortic 26mm - Beckman [id number] Implanted:Qty: 1 on 07/15/2005 Vascular Graft [employer] Description:Device Manufactu rer - [employer]. Device Status Text - VASCGRAFT-06851. Inter-Rolf Knit Bifur. 24m X 12 50cm - Beckman [id number] Implanted:Qty: 1 on 10/24/2008 Vascular Graft Other/Legacy - See Implant Description [place] Description:Device Manufactu rer - [employer] [place] [employer] Body Location - Other. Vascular. Device Status Text - VASCGRAFT-239089. Gelsoft-Str 8x30m - Beckman [id number] Implanted:Qty: 1 on 10/24/2008 Vascular Graft Other/Legacy - See Implant Description [employer] Description:Device Manufactu rer - [employer]. Body Location - Other. Left. Device Status Text - [id number]. Hemashield Woven-Str 26 X 30 - Beckman [id number] Implanted:Qty: 1 on 10/24/2008 Vascular Graft Other/Legacy - See Implant Description Other/Legacy - See Implant Description Description:Device Manufactu rer - [employer]. Body Location - Other. Vascular. Device Status Text - [id number]. Hemashield Str. 7 X 60 - Beckman [id number] Implanted:Qty: 1 on 10/24/2008 Vascular Graft Other/Legacy - See Implant Description Other/Legacy - See Implant Description Description:Device Manufactu rer - [employer]. Body Location - Other. Vascular. Device Status Text - VASCGRAFT-300390. Gelweave Trifurcated 16 X 7 X 8 - Beckman [id number] Implanted:Qty: 1 on 10/24/2008 Vascular Graft Other/Legacy - See Implant Description [employer] Description:Device Manufactu rer - [employer]. Body Location - Other. Vascular. Device Status Text - VASCGRAFT-580099. Graft Hemagard 10mm X 20cm Knit - Beckman [id number] Implanted:Qty: 1 on 08/10/2015 Vascular Graft Other/Legacy - See Implant Description Atrium Description:Device Manufactu rer - [employer]. Body Location - Other. Vascular. Device Status Text - VASCGRAFT-205958. Graft Excluder 12 X 14cm Contralaterals - Beckman [id number] Implanted:Qty: 1 on 08/10/2015 Vascular Graft Other/Legacy - See Implant Description [place] Description:Device Manufactu rer - [employer] [place] [employer] Body Location - Other. Vascular. Device Status Text - [id number]-846508. Graft Hemagard 8mm X 70cm Knit - Beckman [id number] Implanted:Qty: 1 on 09/28/2015 Vascular Graft Other/Legacy - See Implant Description Atrium Description:Device Manufactu rer - [employer]. Body Location - Other. Vascular. Device Status Text - VASCGRAFT-564812. Plug Vascular Amplatz Ii 12mm - [place] [id number] Implanted:Qty: 1 on 09/28/2015 Vascular Other Other/Legacy - See Implant Description Other/Legacy - See Implant Description Description:Device Manufactu rer - [employer]. Body Location - Other. Vascular. Device Status Text - VASCOTHER-[id number]. Plug Vascular Amplatz Ii 12mm - Beckman [id number] Implanted:Qty: 1 on 09/28/2015 Vascular Other Other/Legacy - See Implant Description Other/Legacy - See Implant Description Description:Device Manufactu rer - [employer]. Body Location - Other. Vascular. Device Status Text - VASCOTHER-378889. Procedures Procedure Name Priority Date/Time Associated Diagnosis Comments BASIC METABOLIC PANEL, S/P Routine 08/02/2023 11:26 AM CDT Preanesthetic Medical Exam Marfan Syndrome, Unspecified (HCC) Hypertensive Heart Disease Without Heart Failure LIPID PANEL, S Routine 04/30/2012 11:11 AM CDT from Last 3 Months or Most Recently Relevant to Health Maintenance Results * (ABNORMAL) Basic Metabolic Panel (08/02/2023 11:26 AM CDT) [facility] Potassium, S 4.8 3.6 - 5.2 mmol/L [...] M.S.N. LAB BLOOD ADD-O N Final Result [facility] [address] [place] [address], [facility] [address] [place] [address] * Lipid Panel (04/30/2012 11:11 AM CDT) Cholesterol, Total 152 SeeComment MG/DL [facility] Comment: Reference Range: NCEP guidelines (ages 18y and up) Desirable: <200 Borderline high: 200-239 High: > or =240 Triglycerides 92 SeeComment MG/DL [facility] Comment: Reference Range: NCEP guidelines (ages 18y and up) Normal: <150 Borderline high: 150-199 High: 200-499 Very high: > or =500 Cholesterol, HDL, S 46 SeeComment MG/DL [facility] Comment: Reference Range: NCEP guidelines (ages 18y and up) Low: <40 Normal: 40-59 High : > or =60 Calculated LDL 88 SeeComment MG/DL [facility] Comment: Reference Range: NCEP guidelines (ages 18y and up) Optimal: <100 Near Optimal: 100-129 Borderline high: 130-159 High: 160-189 Very high: > or =190 Cholesterol, Non-HDL, Calculated 106 SeeComment MG/DL [facility] Comment: Reference Range: NCEP guidelines Desirable: <130 Borderline high: 130-159 High: 160-189 Very high: > or =190 04/30/2012 11:1 1 AM CDT 04/30/2012 11:11 AM CDT us Rom Morales M.D. LAB BLOOD ADD-ON Final Resu lt [facility] [address] [place] [address], [facility] from Last 3 Months or Most Recently Relevant to Health Maintenance [facility] Advance Directives For more information, please contact: [phone] Documents on File Type Date Recorded Patient Cleaner And Dyer Expl anation Advance Directives 07/29/2005 12:00 AM Saadia whitman document. See document viewer. * Full Code (Latest Code Status on File) Date Activated Date Inactivated Comments 11/30/2018 6:04 PM 11/30/2018 9:09 PM Question Answer Comments Full Code: Discussed
--- OUTSIDE RECORDS SUMMARY | 2025-03-16 12:31 | XMS_ITS | Clinical Summary ---
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 Gender Identity Not on file Sexual Orientation Not on file Obstetrics History Last Filed Vital Signs Vital Sign Reading Time Taken Comments Blood Pressure 95/66 07/25/2023 9:01 AM CDT Pulse 84 07/25/2023 9:01 AM CDT Temperature 36.7 C (98.1 F) 09/20/2017 2:35 PM MEDICAL CLAIMS ASSISTANT Respiratory Rate 16 07/25/2023 9:01 AM CDT [...] Description 04/22/2025 9:00 AM CDT Office Visit [facility] at [address] [place] [address] Renu Hoyos, BUSINESS ENTERPRISE OFFICER [address] [place] [address] Health Maintenance Due Date Last Done [...] - 199 mg/dL 01/03/2024 4:41 PM CDT [facility] Comment: Cholesterol, Total Reference Ranges Desirable <200 mg/dL Borderline 200-239 mg/dL High >=240 mg/dL TRIGLYCERIDES 73 <150 mg/dL 01/03/2024 4:41 PM CDT [facility] HDL CHOLESTEROL 58 >40 mg/dL 4:41 PM CDT [facility] NON-HDL CHOLESTEROL 108 <145 mg/dl 01/03/2024 4:41 PM CDT [facility] CHOL/HDL RATIO 2.86 <4.50 01/03/2024 4:41 PM CDT [facility] LDL CHOLESTEROL 93 <=130 mg/dL 01/03/2024 4:41 PM CDT [facility] VLDL CHOLESTEROL 15 <=30 mg/dL 01/03/2024 4:41 PM CDT [facility] PROVIDER ORDERED STATUS RANDOM 01/03/2024 4:41 PM CDT [facility] Blood BLOOD SPECIMEN / Unknown Venipuncture / Unknown 01/03/2024 9:13 AM CDT 01/03/2024 9:14 AM CDT us Renu Hoyos NP CHEMISTRY Final Result [facility] [address] [place] [address], [place] from Last 3 Months or Most Recently Relevant to Health Maintenance Insurance [facility] ATTN: JOSSELINE CANTOR [address] [facility] [address] Care Teams Fruit Sprayer Relationship Specialty Start Date End Date Jaime Jon MD [address] [place] [address] PCP - General Family Practice 09/20/17
== END 2025-03-15 18:58 | disposition home or self-care (01) ==
PROVIDERS: Emergency Provider Emergency Medicine Emergency Medical Services; PCP Family Medicine
DX: R00.0 Tachycardia, unspecified (principal)
CPT/HCPCS: 36415; 80048; 83735; 84484; 85025; 93005; 94761; 96374; 99284; 99285; A9270; J0153; J7030

== ENCOUNTER 2025-03-16 22:42 | Emergency (ER) | payer OTHER, SELFPAY ==
[2025-03-16] VITALS (12 sets, daily range): BP systolic 103–147; BP diastolic 65–90; PULSE 89–111; RESP 20–38; TEMP 37.2; O2SAT 85–92; BMI 28.8
--- NOTE | 2025-03-16 22:59 | ED.GENADULT ---
HPI - General Adult General Chief complaint: Shortness of Breath/Dyspnea Stated complaint: shortness of breath, vomiting Time Seen by Provider: 03/16/25 22:59 History of Present Illness HPI narrative: pt presents with . states he was here yesterday for tachycardia and was given meds to slow. pt states today shortness of breath increase and started vomiting at 1800, sweaty with headache. denies CP. 49-year-old man presenting to the emergency department with concern of increasing shortness of breath and vomiting. Heart rate has remained elevated since visit the emergency department yesterday. Was diagnosed with a tachycardia. Rate controlled meds were not recommended. Feels worn out. Been vomiting today. Has not measured a fever. No hematemesis. No diarrhea. No ill contacts noted. Underlying history of Marfans and he notes numerous vascular surgeries including stenting of subclavian says, aortic dissection and repair. I believe some work was done carotids well. Arrives hypoxic and little tachypneic and tachycardic. Takes Plavix Has been between insurances and not able to follow up regularly with Cardiology as he used to. Did have a relationship with [facility] but otherwise had been seeing [facility]. Related Data Home Medications ?Medication ?Instructions ?Recorded ?Confirmed buspirone 30 mg tablet 30 mg PO BID 01/25/24 02/26/25 desvenlafaxine succinate 100 mg 100 mg PO DAILY 01/25/24 02/26/25 tablet,extended release 24 hr lorazepam 0.5 mg tablet 0.5 mg PO DAILY 01/25/24 02/26/25 propranolol 60 mg capsule,24 60 mg PO DAILY PRN 01/25/24 02/26/25 hr,extended release aripiprazole 5 mg tablet 10 mg PO QDAY 02/26/25 02/26/25 bupropion HCl 300 mg 24 hr tablet, 300 mg PO QAM 02/26/25 02/26/25 extended release (Wellbutrin XL) gabapentin 300 mg capsule 600 mg PO BID 02/26/25 02/26/25 Previous Rx's ?Medication ?Instructions ?Recorded scopolamine base 1 mg over 3 days 1 patch transdermal Q72H PRN 10/30/24 transdermal patch motion sickness #4 ea amoxicillin 500 mg capsule 2,000 mg (4 x 500 mg) PO ONCE #12 02/26/25 caps clopidogrel 75 mg tablet 75 mg PO QDAY #90 tabs 02/26/25 losartan 50 mg tablet 50 mg PO QDAY #90 tabs 02/26/25 prednisone 20 mg tablet 40 mg (2 x 20 mg) PO QDAY #10 tabs 02/26/25 Allergies Allergy/AdvReac Type Severity Reaction Status Date / Time fentanyl AdvReac Intermediate Vomiting Verified 03/16/25 22:53 Review of Systems Status of ROS: Reports: 6 or more systems reviewed and unremarkable except as noted in History and below PFSH [facility] Medical History Marfan syndrome ?Q87.40 - Marfan syndrome, unspecified (ICD-10) Aneurysm ?I72.9 - Aneurysm of unspecified site (ICD-10) DVT (deep venous thrombosis) (2003) ?I82.409 - Acute embolism and thrombosis of unspecified deep veins of unspecified lower extremity (ICD-10) Pulmonary embolism (2003) ?I26.99 - Other pulmonary embolism without acute cor pulmonale (ICD-10) Pericarditis ?I31.9 - Disease of pericardium, unspecified (ICD-10) Aortic dissection ?I71.00 - Dissection of unspecified site of aorta (ICD-10) Surgical History History of left nephrectomy ?Z90.5 - Acquired absence of kidney (ICD-10) History of cardiovascular surgery (2004) ?Z98.890 - Other specified postprocedural states (ICD-10) S/P vasectomy (05/20/20) ?Z98.52 - Vasectomy status (ICD-10) History of spinal surgery (2020) ?Z98.890 - Other specified postprocedural states (ICD-10) History of eye surgery ?Z98.890 - Other specified postprocedural states (ICD-10) Family History Mother Thyroid cancer Breast cancer Father Raynauds syndrome Son Autism Social History What is your current living situation?: I presently have a place to live Problems where you live: no known problems In the past 12 months, utilities in danger of being shut off: no In past 12 months, lack of transportation kept you from medical appts, meetings, work, or getting things needed for daily living: no In the past 12 mos, have been you worried that your food would run out before you had money to buy more?: never true In the past 12 mos, the food you bought just didn't last and you didn't have money to buy more?: never true Smoking Status: Never smoker Second hand tobacco smoke exposure: No How often do you have a drink containing alcohol: never AUDIT-C Alcohol total score: 0 Non-prescribed substance use: denies use How often does anyone, including family, friends and others, physically hurt you: never How often does anyone, including family, friends and others, insult or talk down to you: never How often does anyone, including family, friends and others, threaten you with harm: never How often does anyone, including family, friends and others, scream or curse at you: rarely Health Related Social Needs: Other personal risk factors, not elsewhere classified (Z91.89) Exam Narrative: Exam Narrative: Oxygenating 90% on 3 L nasal cannula during this interview. Very tall. Looks like he does not feel very good. Lungs appear to be clear. Mildly labored in breathing. Heart is tachycardic in a regular rhythm. Extremities are without edema. Is well-perfused. Abdomen is soft and a little tender in the right upper quadrant a little more midline. Pectus excavatum is noted. Skin is generally rather warm. Const: Vital Signs, click to edit/add: Vital Signs - 24 hr 03/16/25 22:50 03/16/25 22:53 03/16/25 22:57 Temperature 98.9 F Pulse Rate 101 H 95 Pulse Rate [Pulse Oximeter] 111 H Respiratory Rate 20 27 H Blood Pressure 103/75 Blood Pressure [Ri ght Upper Arm] 147/76 H Pulse Oximetry 85 L 87 L 89 Oxygen Delivery Me thod Room Air Nasal Cannula Oxygen Flow Rate 3 03/16/25 23:00 03/16/25 23:02 03/16/25 23:12 Temperature Pulse Rate 94 93 93 Pulse Rate [Pulse Oximeter] Respiratory Rate 38 H 23 30 H Blood Pressure 105/65 104/80 Blood Pressure [Ri ght Upper Arm] Pulse Oximetry 89 89 89 Oxygen Delivery Me thod Oxygen Flow Rate 03/16/25 23:15 03/16/25 23:22 03/16/25 23:43 Temperature Pulse Rate 95 94 Pulse Rate [Pulse Oximeter] Respiratory Rate 31 H 34 H Blood Pressure 106/81 Blood Pressure [Ri ght Upper Arm] Pulse Oximetry 90 89 92 Oxygen Delivery Me thod Oxygen Flow Rate 03/16/25 23:43 03/16/25 23:43 03/16/25 23:44 Temperature Pulse Rate 97 Pulse Rate [Pulse Oximeter] Respiratory Rate 27 H 36 H Blood Pressure 121/90 H Blood Pressure [Ri ght Upper Arm] Pulse Oximetry 92 90 Oxygen Delivery Me thod Nasal Cannula Oxygen Flow Rate 3 03/16/25 23:45 03/16/25 23:52 03/17/25 00:00 Temperature Pulse Rate 94 89 Pulse Rate [Pulse Oximeter] Respiratory Rate 25 H 33 H 26 H Blood Pressure 105/85 Blood Pressure [Ri ght Upper Arm] Pulse Oximetry 91 91 Oxygen Delivery Me thod Oxygen Flow Rate 03/17/25 00:02 03/17/25 00:02 03/17/25 00:02 Temperature Pulse Rate 88 88 88 Pulse Rate [Pulse Oximeter] Respiratory Rate 28 H 28 H 28 H Blood Pressure 99/69 99/69 99/69 Blood Pressure [Ri ght Upper Arm] Pulse Oximetry 92 92 92 Oxygen Delivery Me thod Oxygen Flow Rate 03/17/25 00:12 03/17/25 00:15 03/17/25 00:22 Temperature Pulse Rate 86 86 86 Pulse Rate [Pulse Oximeter] Respiratory Rate 36 H 34 H 36 H Blood Pressure 104/72 107/66 Blood Pressure [Ri ght Upper Arm] Pulse Oximetry 92 92 92 Oxygen Delivery Me thod Oxygen Flow Rate Documenting provider has reviewed patient's vital signs: yes Course Vital Signs Vital signs: Initial Vital Signs Temperature 98.9 F 03/16/25 22:50 Temperature Source Oral 03/16/25 22:50 Pulse Rate 111 H 03/16/25 22:50 Respiratory Rate 20 03/16/25 22:50 Blood Pressure 147/76 H 03/16/25 22:50 Blood Pressure Mean 99 03/16/25 22:50 Blood Pressure Position Sitting 03/16/25 22:50 Pulse Oximetry 85 L 03/16/25 22:50 Oxygen Delivery Method Room Air 03/16/25 22:50 Vital Signs Temperature 98.9 F 03/16/25 22:50 Pulse Rate 111 H 03/16/25 22:50 Respiratory Rate 20 03/16/25 22:50 Blood Pressure 147/76 H 03/16/25 22:50 Pulse Oximetry 85 L 03/16/25 22:50 Oxygen Delivery Method Room Air 03/16/25 22:50 Temperature 98.9 F 03/16/25 22:50 Pulse Rate 76 03/17/25 03:01 Respiratory Rate 29 H 03/17/25 03:01 Blood Pressure 103/72 03/17/25 03:01 Pulse Oximetry 95 03/17/25 03:01 Oxygen Delivery Method Nasal Cannula 03/16/25 23:43 Oxygen Flow Rate 3 03/16/25 23:43 Medications Administered Medications: Discontinued Medications Generic Name Dose Route Start Last Admin Trade Name Freq PRN Reason Stop Dose Admin Sodium Chloride 1,000 mls @ 1,000 mls/hr 03/16/25 23:11 03/17/25 00:47 0.9 % Sodium Chloride 1000 Ml IV 03/17/25 00:10 Infused .Q1H ONE Infusion Lactated Ringer's 1,000 mls @ 1,000 mls/hr 03/17/25 00:19 03/17/25 01:58 Lactated Ringers 1000 Ml IV 03/17/25 01:18 Infused .Q1H ONE Infusion Piperacillin Sod/Tazobactam 100 mls @ 200 mls/hr 03/17/25 00:45 03/17/25 01:58 Sod 4.5 gm/ Sodium Chloride IVPB 03/17/25 00:46 Infused ONCE ONE Infusion Ondansetron HCl 4 mg 03/16/25 23:14 03/16/25 23:50 Ondansetron 2 Mg/Ml Inj IVP 03/16/25 23:15 4 mg ONCE ONE Administration Medical Decision Making MDM Narrative Medical decision making narrative: Unclear etiology this heart rate. I think in this case would be good to evaluate for potential pulmonary embolus as a contributing factor. Look for course for evidence of infection/pneumonia as well. Intend to scan chest with contrast and given history of vascular disruption and discomfort also in the right upper abdomen will continue scan through abdomen and pelvis. Will initiate IV hydration. I feel like this heart rate is representing underlying disease more than a primary problem. White is rather elevated at nearly 17,000. Transaminases are rather elevated as well with marked increase in direct bilirubin. ProBNP 4440. CT images show a rather large gallbladder and I think some pericholecystic edema. Cholangitis is in differential. Have initiated IV antibiotics; Zosyn. Concern about fluid overload with BNP of 4400 Will be looking for tertiary placement for this potentially complicated patient. Meantime will also try to get an ultrasound INDICATION: Chest pain, hypoxia, history of Marfans. TECHNIQUE: CT chest PE was acquired with 95 cc Isovue 370 IV contrast. COMPARISON: None. FINDINGS: Heart and vasculature: Contrast opacification of the pulmonary arterial tree is borderline suboptimal. No definite pulmonary embolism. Heart size is normal. Dilated main pulmonary artery measuring up to 4.2 cm with dilated distal branches as well. Brachiocephalic artery graft appears patent. Left subclavian graft appears occluded. Possible graft material in the proximal left carotid, which appears patent. Left carotid subclavian graft appears patent. Apparent aortic root and thoracic aorta replacement as well. Within the distal graft at thoracic aorta, there are multiple indeterminate findings, for example vascular outpouching on and central dividing flap on . While these findings are likely chronic and postsurgical, acute pathology like dissection and/or small pseudoaneurysm could not be entirely excluded. Early takeoff of the mesenteric vessels at the level of the diaphragm, which appear patent. Lungs and pleura: No definite suspicious nodules or infiltrates. Mild subsegmental atelectasis. Chronic bilateral lung volume loss related to pectus excavatum. No pleural effusions, pleural thickening, or pneumothorax. Lymph nodes/mediastinum: No mediastinal, hilar, or axillary adenopathy. Chest wall: No masses. Upper abdomen: No acute findings. 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 Bones: No acute lesions. Pectus excavatum. Inferior sternal wire. IMPRESSION: 1. No definite acute findings. Specifically, no evidence of pulmonary embolism within the limits of the exam. 2. Pectus excavatum with associated findings. 3. Dilated main and distal pulmonary arteries, nonspecific but possibly sequelae of chronic pulmonary hypertension. 4. Multiple cardiovascular surgical interventions as described above. While there is no definite superimposed acute pathology, evaluation is limited in the absence of prior comparisons. Please note that all CT scans at this facility use dose modulation, iterative reconstruction, and/or weight-based dosing when appropriate to reduce radiation dose to as low as reasonably achievable. Dictated by Karthik Perez MD @ 03/17/2025 12:57:10 AM TECHNIQUE: CT abdomen and pelvis acquired with 95 cc Isovue 370 IV contrast. COMPARISON: None. FINDINGS: Lower chest: Dictated separately. Liver: Unremarkable. Normal in size and attenuation. No suspicious masses. Gallbladder and bile ducts: Gallbladder wall thickening and hyperemia with pericholecystic inflammatory changes. Dilated intra and extrahepatic bile ducts. No radiopaque cholelithiasis or choledocholithiasis identified. Pancreas: Unremarkable. No mass or inflammation. Spleen: Unremarkable. Normal in size. No masses. Adrenal glands: Unremarkable. No nodules. Kidneys: Absent left kidney with 1.4 cm cystic lesion in the presumed surgical bed (). Right kidney is unremarkable. GI tract: Small hiatal hernia. Normal in caliber. No sign of mass or inflammation. Normal appendix. Vasculature: Please see separately dictated CT chest for more detailed discussion of the partially visualized thoracic aorta. Aneurysmal dilation of the infrarenal abdominal aorta measuring approximately 3.6 cm (). Atherosclerotic calcifications and tortuosity of the aorta and branch vessels. Lymph nodes: No pathologic lymphadenopathy. Peritoneum/Abdominal Wall: No pneumoperitoneum. Small volume pelvic free fluid, possibly reactive. Pelvis: Mild circumferential bladder wall thickening. Prostate calcifications. Bones: No definite acute or suspicious lesions. Multilevel spinal degenerative changes. IMPRESSION: 1. Acute gallbladder inflammatory changes with associated intra and extrahepatic bile duct dilation. No radiopaque cholelithiasis or choledocholithiasis identified. Findings are favored to represent acute cholecystitis with possible cholangitis component as well. 2. Mild circumferential bladder wall thickening is indeterminate. Correlate with urinalysis. 3. Infrarenal aortic aneurysm measuring approximately 3.6 cm. Findings communicated to MD Umesh (ordering provider) by MD Chris (radiology) at 0055 by phone. Did receive acceptance from [facility]. Transferred via [facility] ambulance Medical Records Medical records reviewed: Yes I reviewed the patient's medical records Lab Data Lab results reviewed: Yes I reviewed the patient's lab results Labs: Lab Results 03/16/25 03/16/25 03/16/25 Range/Units 22:55 23:13 23:35 WBC 16.98 H (4.50-11.00) K/uL RBC 4.83 (4.30-5.90) m/uL Hgb 13.5 (13.5-17.5) gm/dL Hct 40.8 (37.0-53.0) % MCV 85 (80-100) fL MCH 28 (26-34) pg MCHC 33 (32-36) gm/dL RDW Coeff of Oracio 13.2 (11.5-15.5) % Plt Count 268 (140-440) K/uL Neut % (Auto) 88.8 H (42.0-72.0) % Lymph % (Auto) 3.7 L (20-44) % [place] % (Auto) 5.5 (0.0-11.0) % Eos % (Auto) 0.1 (0.0-7.0) % Baso % (Auto) 0.3 (0.0-3.0) % Neut # (Auto) 15.10 H (1.7-7.0) K/uL Lymph # (Auto) 0.60 L (0.90-2.90) K/uL [place] # (Auto) 0.90 (0.00-0.90) K/UL Eos # (Auto) 0.00 (0.00-0.50) K/uL Baso # (Auto) 0.10 (0.00-0.30) K/uL Abs Immat Gran (auto) 0.30 (0.00-0.30) K/uL Imm/Tot Granulo (auto) 1.6 % D-Dimer Quant (PE/DVT) 6.01 H (0.00-0.50) ug/ml VBG pH 7.459 H (7.32-7.43) VBG pCO2 34 L (40-50) mmHG VBG pO2 53.4 H (25-47) mmHG VBG HCO3 24 (21-28) mmol/L Sodium 137 (135-149) mmol/L Potassium 4.2 (3.6-5.1) mmol/L Chloride 104 (96-114) mmol/L Carbon Dioxide 25 (20-32) mmol/L Anion Gap 8 (7-15) mEq/L BUN 26 H (5-24) mg/dL Creatinine 1.8 H (0.5-1.5) mg/dL Estimated Creat Clear 77.14 Estimated GFR 46 ml/min Glucose 116 H (60-115) mg/dL Lactate 1.2 (0.5-1.9) mmol/L Calcium 9.4 (8.4-10.6) mg/dL Total Bilirubin 5.7 H (0.1-1.5) mg/dL Direct Bilirubin 4.6 H (0.0-0.5) mg/dL AST 143 H (12-35) U/L ALT 147 H (4-50) U/L Alkaline Phosphatase 224 H (40-150) U/L Troponin I 0.07 H* (0.01-0.04) ng/mL C-Reactive Protein 26.6 H (0.5-1.0) mg/dL NT-Pro-B Natriuret Pep 4440 H (See Note) pg/mL Total Protein 7.5 (6.0-8.3) g/dL Albumin 4.1 (3.3-5.0) g/dL Lipase 48 (23-300) U/L SARS-CoV-2 (PCR) Negative SARS-CoV-2 (Negative) Influenza Type A (PCR) Negative PCR FLU A (Negative) Influenza Type B (PCR) Negative PCR FLU B (Negative) RSV (PCR) Negative PCR RSV (Negative) Lab Acknowledgement POC Troponin I 0.01 (0.01-0.04) ng/ml 03/17/25 Range/Units 01:03 WBC (4.50-11.00) K/uL RBC (4.30-5.90) m/uL Hgb (13.5-17.5) gm/dL Hct (37.0-53.0) % MCV (80-100) fL MCH (26-34) pg MCHC (32-36) gm/dL RDW Coeff of [place]acio (11.5-15.5) % Plt Count (140-440) K/uL Neut % (Auto) (42.0-72.0) % Lymph % (Auto) (20-44) % [place] % (Auto) (0.0-11.0) % Eos % (Auto) (0.0-7.0) % Baso % (Auto) (0.0-3.0) % Neut # (Auto) (1.7-7.0) K/uL Lymph # (Auto) (0.90-2.90) K/uL [place] # (Auto) (0.00-0.90) K/UL Eos # (Auto) (0.00-0.50) K/uL Baso # (Auto) (0.00-0.30) K/uL Abs Immat Gran (auto) (0.00-0.30) K/uL Imm/Tot Granulo (auto) % D-Dimer Quant (PE/DVT) (0.00-0.50) ug/ml VBG pH (7.32-7.43) VBG pCO2 (40-50) mmHG VBG pO2 (25-47) mmHG VBG HCO3 (21-28) mmol/L Sodium (135-149) mmol/L Potassium (3.6-5.1) mmol/L Chloride (96-114) mmol/L Carbon Dioxide (20-32) mmol/L Anion Gap (7-15) mEq/L BUN (5-24) mg/dL Creatinine (0.5-1.5) mg/dL Estimated Creat Clear Estimated GFR ml/min Glucose (60-115) mg/dL Lactate (0.5-1.9) mmol/L Calcium (8.4-10.6) mg/dL Total Bilirubin (0.1-1.5) mg/dL Direct Bilirubin (0.0-0.5) mg/dL AST (12-35) U/L ALT (4-50) U/L Alkaline Phosphatase (40-150) U/L Troponin I (0.01-0.04) ng/mL C-Reactive Protein (0.5-1.0) mg/dL NT-Pro-B Natriuret Pep (See Note) pg/mL Total Protein (6.0-8.3) g/dL Albumin (3.3-5.0) g/dL Lipase (23-300) U/L SARS-CoV-2 (PCR) (Negative) Influenza Type A (PCR) (Negative) Influenza Type B (PCR) (Negative) RSV (PCR) (Negative) Lab Acknowledgement Test Added POC Troponin I (0.01-0.04) ng/ml ECG Data Attestation: I personally reviewed and interpreted this ECG as follows: (Normal sinus at a rate of 95. Similar to prior. ) Critical Care Time Critical Care Time Critical Care Time: Yes Attestation: The patient required my highest level preparedness to intervene emergently and I personally spent this critical care time directly and personally managing the patient. This critical care time included: Obtaining a history; Examining the patient; Pulse oximetry; Ordering and reviewing of studies; Arranging urgent treatment with development of a management plan; Evaluation of patients response to treatment; Frequent reassessment discussions with other providers. This critical care time was performed to assess and manage the high probability of imminent life-threatening deterioration that could result in multiorgan failure. It was exclusive of separate billable procedures and treating other patients and teaching time. Total Critical Care Time in Minutes: 50 Discharge Plan Discharge Clinical Impression: Cholecystitis, Cholangitis Patient Disposition: [facility] Condition: Improved Prescriptions: No Action buspirone 30 mg tablet 30 mg PO BID lorazepam 0.5 mg tablet 0.5 mg PO DAILY desvenlafaxine succinate 100 mg tablet extended release 24 hr 100 mg PO DAILY propranolol 60 mg capsule,extended release 24 hr 60 mg PO DAILY PRN aripiprazole 5 mg tablet 10 mg PO QDAY gabapentin 300 mg capsule 600 mg PO BID Rx Instructions: in addition to 300mg each afternoon bupropion HCl [Wellbutrin XL] 300 mg tablet extended release 24 hr 300 mg PO QAM prednisone 20 mg tablet 40 mg PO QDAY Qty: 10 4RF amoxicillin 500 mg capsule 2,000 mg PO ONCE Qty: 12 3RF Rx Instructions: Take 2000 mg 1 hour before dental procedure. clopidogrel 75 mg tablet 75 mg PO QDAY Qty: 90 3RF losartan 50 mg tablet 50 mg PO QDAY Qty: 90 3RF scopolamine base 1 mg over 3 days patch 3 day 1 patch transdermal Q72H PRN (Reason: motion sickness) Qty: 4 1RF Stand Alone Forms: My[facility] Info Instructions
--- NOTE | 2025-03-16 23:11 | CRLHL7_ITS ---
For Patients: As a result of the 21st Century Cures Act, medical imaging exams and procedure reports are released immediately into your electronic medical record. You may view this report before your referring provider. If you have questions, please contact your health care provider. INDICATION: Chest pain, hypoxia, history of Marfans. TECHNIQUE: CT chest PE was acquired with 95 cc Isovue 370 IV contrast. COMPARISON: None. FINDINGS: Heart and vasculature: Contrast opacification of the pulmonary arterial tree is borderline suboptimal. No definite pulmonary embolism. Heart size is normal. Dilated main pulmonary artery measuring up to 4.2 cm with dilated distal branches as well. Brachiocephalic artery graft appears patent. Left subclavian graft appears occluded. Possible graft material in the proximal left carotid, which appears patent. Left carotid subclavian graft appears patent. Apparent aortic root and thoracic aorta replacement as well. Within the distal graft at thoracic aorta, there are multiple indeterminate findings, for example vascular outpouching on and central dividing flap on . While these findings are likely chronic and postsurgical, acute pathology like dissection and/or small pseudoaneurysm could not be entirely excluded. Early takeoff of the mesenteric vessels at the level of the diaphragm, which appear patent. Lungs and pleura: No definite suspicious nodules or infiltrates. Mild subsegmental atelectasis. Chronic bilateral lung volume loss related to pectus excavatum. No pleural effusions, pleural thickening, or pneumothorax. Lymph nodes/mediastinum: No mediastinal, hilar, or axillary adenopathy. Chest wall: No masses. Upper abdomen: No acute findings. 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 Bones: No acute lesions. Pectus excavatum. Inferior sternal wire. IMPRESSION: 1. No definite acute findings. Specifically, no evidence of pulmonary embolism within the limits of the exam. 2. Pectus excavatum with associated findings. 3. Dilated main and distal pulmonary arteries, nonspecific but possibly sequelae of chronic pulmonary hypertension. 4. Multiple cardiovascular surgical interventions as described above. While there is no definite superimposed acute pathology, evaluation is limited in the absence of prior comparisons. Please note that all CT scans at this facility use dose modulation, iterative reconstruction, and/or weight-based dosing when appropriate to reduce radiation dose to as low as reasonably achievable. Dictated by Karthik Perez MD @ 03/17/2025 12:57:10 AM (Electronically Signed)
[2025-03-16 23:18] LABS: Troponin, Point-of-Care* 0.01 ng/ml (0.01-0.04)
[2025-03-16 23:20] LABS: HCO3 VBG 24 mmol/L (21-28); PCO2 VBG 34 mmHG (40-50); PO2 VBG 53.4 mmHG (25-47); pH VBG 7.459 (7.32-7.43)
[2025-03-16 23:21] LABS: Basophils Percent Auto 0.3 % (0.0-3.0); Eosinophils Percent Auto 0.1 % (0.0-7.0); Hematocrit 40.8 % (37.0-53.0); Hemoglobin* 13.5 gm/dL (13.5-17.5); Immature Granulocytes Pct Auto 1.6 %; Lactate* 1.2 mmol/L (0.5-1.9); Lymphocytes Percent Auto 3.7 % (20-44); Mean Corpuscular HGB Conc 33 gm/dL (32-36); Mean Corpuscular Hemoglobin 28 pg (26-34); Mean Corpuscular Volume 85 fL (80-100); Monocytes Percent Auto 5.5 % (0.0-11.0); Neutrophils Percent Auto 88.8 % (42.0-72.0); Platelet Count* 268 K/uL (140-440); RDW Coefficient of Variation % 13.2 % (11.5-15.5); Red Blood Count 4.83 m/uL (4.30-5.90); White Blood Count* 16.98 K/uL (4.50-11.00)
[2025-03-16 23:22] LABS: Slide Review Reflex No
[2025-03-16 23:23] LABS: Albumin* 4.1 g/dL (3.3-5.0); Chloride* 104 mmol/L (96-114)
[2025-03-16 23:24] LABS: Potassium* 4.2 mmol/L (3.6-5.1); Sodium* 137 mmol/L (135-149)
[2025-03-16 23:26] LABS: Blood Urea Nitrogen* 26 mg/dL (5-24); Creatinine* 1.8 mg/dL (0.5-1.5); Est. Creatinine Clearance* 77.14; Estimated Glomerular Filt Rate 46 ml/min
[2025-03-16 23:27] LABS: Alanine Aminotransferase* 147 U/L (4-50); Alkaline Phosphatase* 224 U/L (40-150); Anion Gap 8 mEq/L (7-15); Aspartate Amino Transferase* 143 U/L (12-35); Bilirubin Direct* 4.6 mg/dL (0.0-0.5); Bilirubin Total* 5.7 mg/dL (0.1-1.5); Calcium* 9.4 mg/dL (8.4-10.6); Carbon Dioxide* 25 mmol/L (20-32); Glucose* 116 mg/dL (60-115); Total Protein* 7.5 g/dL (6.0-8.3)
--- NOTE | 2025-03-16 23:30 | CRLHL7_ITS ---
For Patients: As a result of the Century Cures Act, medical imaging exams and procedure reports are released immediately into your electronic medical record. You may view this report before your referring provider. If you have questions, please contact your health care provider. INDICATION: Isabel abdominal pain, high white cell count n. TECHNIQUE: CT abdomen and pelvis acquired with 95 cc Isovue 370 IV contrast. COMPARISON: None. FINDINGS: Lower chest: Dictated separately. Liver: Unremarkable. Normal in size and attenuation. No suspicious masses. Gallbladder and bile ducts: Gallbladder wall thickening and hyperemia with pericholecystic inflammatory changes. Dilated intra and extrahepatic bile ducts. No radiopaque cholelithiasis or choledocholithiasis identified. Pancreas: Unremarkable. No mass or inflammation. Spleen: Unremarkable. Normal in size. No masses. Adrenal glands: Unremarkable. No nodules. Kidneys: Absent left kidney with 1.4 cm cystic lesion in the presumed surgical bed (). Right kidney is unremarkable. GI tract: Small hiatal hernia. Normal in caliber. No sign of mass or inflammation. Normal appendix. Vasculature: Please see separately dictated CT chest for more detailed discussion of the partially visualized thoracic aorta. Aneurysmal dilation of the infrarenal abdominal aorta measuring approximately 3.6 cm (). Atherosclerotic calcifications and tortuosity of the aorta and branch vessels. Lymph nodes: No pathologic lymphadenopathy. Peritoneum/Abdominal Wall: No pneumoperitoneum. Small volume pelvic free fluid, possibly reactive. Pelvis: Mild circumferential bladder wall thickening. Prostate calcifications. Bones: No definite acute or suspicious lesions. Multilevel spinal degenerative changes. IMPRESSION: 1. Acute gallbladder inflammatory changes with associated intra and extrahepatic bile duct dilation. No radiopaque cholelithiasis or choledocholithiasis identified. Findings are favored to represent acute cholecystitis with possible cholangitis component as well. 2. Mild circumferential bladder wall thickening is indeterminate. Correlate with urinalysis. 3. Infrarenal aortic aneurysm measuring approximately 3.6 cm. Findings communicated to MD Umesh (ordering provider) by MD Chris (radiology) at 0055 by phone. Please note that all CT scans at this facility use dose modulation, iterative reconstruction, and/or weight-based dosing when appropriate to reduce radiation dose to as low as reasonably achievable. Dictated by Karthik Perez MD @ 03/17/2025 1:13:55 AM (Electronically Signed)
[2025-03-16 23:36] LABS: D Dimer Quantitative* 6.01 ug/ml (0.00-0.50)
[2025-03-16 23:39] LABS: NT Pro B Type NatriureticPept* 4440 pg/mL (See Note)
[2025-03-16 23:40] LABS: C Reactive Protein* 26.6 mg/dL (0.5-1.0); Troponin I* 0.07 ng/mL (0.01-0.04)
[2025-03-16] MEDS: 0.9 % SODIUM CHLORIDE 1000 ml 1,000 ML IV (23:45)
[2025-03-16] MEDS: ONDANSETRON 2 MG/ML inj 4 MG IVP (23:50)
[2025-03-17] VITALS (24 sets, daily range): BP systolic 90–112; BP diastolic 66–78; PULSE 76–90; RESP 19–38; O2SAT 91–95
[2025-03-17 00:28] LABS: PCR FLU A Negative PCR FLU A (Negative); PCR FLU B Negative PCR FLU B (Negative); PCR RSV Negative PCR RSV (Negative); SARS PCR* Negative SARS-CoV-2 (Negative)
[2025-03-17] MEDS: LACTATED RINGERS 1000 ML 1,000 ML IV (00:28)
--- NOTE | 2025-03-17 01:01 | CRLHL7_ITS ---
For Patients: As a result of the Century Cures Act, medical imaging exams and procedure reports are released immediately into your electronic medical record. You may view this report before your referring provider. If you have questions, please contact your health care provider. INDICATION: Right upper quadrant abdomen pain. TECHNIQUE: Ultrasound abdomen limited. Sonographic images of the right upper quadrant were obtained using jin-scale and color Doppler images. COMPARISON: CT abdomen and pelvis 03/16/2025. FINDINGS: Limited examination due to significant overlying bowel gas. Within these limitations, a gallstone is identified in addition to layering gallbladder sludge. There is gallbladder wall thickening measuring up to 8 mm. Probable mild pericholecystic edema. Indeterminate sonographic Wilcox`s sign. Common bile duct is not well visualized on this examination. IMPRESSION: Cholelithiasis with findings suspicious for acute cholecystitis including gallbladder wall thickening and probable mild pericholecystic edema. Limited evaluation of the biliary tree due to overlying bowel gas. Dictated by Per Garrido MD @ 03/17/2025 2:33:19 AM (Electronically Signed)
[2025-03-17] MEDS: PIPERACILLIN/TAZOBACTAM 4.5 GM in 0.9 % SODIUM CHLORIDE Mini-bag 100 ML IVPB (01:09)
[2025-03-17 01:31] LABS: Lipase* 48 U/L (23-300)
== END 2025-03-17 03:15 | disposition short-term general hospital (02) ==
PROVIDERS: Emergency Provider Family Medicine; PCP Family Medicine
DX: K81.9 Cholecystitis, unspecified (principal); K83.09 Other cholangitis; R00.0 Tachycardia, unspecified; R11.10 Vomiting, unspecified
CPT/HCPCS: 36415; 71275; 74177; 76705; 80048; 80076; 82803; 83605; 83690; 83880; 84484; 85025; 85379; 86140; 87040; 87631; 93005; 94761; 99284; 99291; J2405; J2543; J7030; J7120; Q9967

== ENCOUNTER 2025-07-06 10:20 | Emergency (ER) | payer OTHER, SELFPAY ==
[2025-07-06] VITALS (33 sets, daily range): BP systolic 130–187; BP diastolic 72–93; PULSE 75–110; RESP 18–35; TEMP 38.2; O2SAT 85–96; BMI 27.7
--- OUTSIDE RECORDS SUMMARY | 2025-07-06 10:21 | XMS_ITS | Clinical Summary ---
Author Organization [facility] Address [address] [place] [id number] Care Team Providers Care Fourth Mate Name Role Phone Jaime Jon MD Primary Care Provider [phone] Allergies Active Allergy Reactions Criticality Noted Date [...] mg) by mouth once daily. 90 Tablet 04/22/2025 Active buPROPion (Wellbutrin XL) 300 mg Extended-Releas e tabletIndicatio ns:Recurrent major depressive disorder, in partial remission Take 1 Tablet (300 mg) by mouth once daily. 90 Tablet 04/22/2025 Active busPIRone 10 mg tabletIndicatio ns:BRITTANY (generalized anxiety disorder) Take 1 Tablet (10 mg) by mouth two times daily. 180 Tablet 04/22/2025 Active desvenlafaxine succinate (Pristiq) 100 mg extended release tabletIndicatio ns:Recurrent major depressive disorder, in partial remission,BRITTANY (generalized anxiety disorder) Take 1 Tablet (100 mg) by mouth once daily in the morning. 90 Tablet 04/22/2025 Active gabapentin 300 mg capsuleIndicati ons:BRITTANY (generalized anxiety disorder) Take 2 Capsules (600 mg) by mouth two times daily. 360 Capsule 2 04/22/2025 Active buPROPion (Wellbutrin XL) 150 mg Extended-Releas e tabletIndicatio ns:Moderate episode of recurrent major depressive disorder (HC) Take 1 Tablet (150 mg) by mouth once daily. Total daily dose is 450 mg daily. 90 Tablet 04/22/2025 Active Active Problems Problem Noted Date Diagnosed Date Recurrent major depressive disorder, in partial remission 02/05/2025 BRITTANY (generalized anxiety disorder) 02/05/2025 Marfan syndrome 05/08/2020 LVH (left ventricular hypertrophy) 05/08/2020 PVD (peripheral vascular disease) 05/08/2020 HTN (hypertension) 05/08/2020 S/p nephrectomy 05/08/2020 Encounters Date Type Department Care Team Description 04/24/2025 Patient Outreach [facility] Care Management - Advanced Care Team [address] [place] [id number] Carmela Goff Medication Management ( Comprehensive Medication Review) 04/22/2025 9:00 AM CDT Office Visit [facility] at [address] [place] [address] Renu Hoyos NP Medication Management 04/22/[address] [place] [address] Renu Hoyos NP Care Coordination with Dr. Camargo (Kidney Specialist) from Last 3 Months Immunizations Immunization Administration Dates Next Due COVID-19 vaccine (Moderna 100mcg/0.5mL) MORE JHAVERI 09/18/2021 Hepatitis B (Adult) 08/08/2008,05/07/2008,2007 Influenza, IIV3 [...] PHQ-2 Answer Date Recorded PHQ-2 TOTAL SCORE 4 04/22/2025 Financial Resource Strain Answer Date R ecorded Difficulty of Paying Living Expenses Not on file 10/16/2021 Difficulty of Paying Living Expenses Not on file 10/16/2021 Sex and Gender Information Value Date Recorded Sex Assigned at Not on file Legal Sex Male 6:57 AM [employer] Gender Identity Not on file Sexual Orientation Not on file Obstetrics History Last Filed Vital Signs Vital Sign Reading Time Taken Comments Blood Pressure 125/77 04/22/2025 8:55 AM CDT Pulse 63 04/22/2025 8:55 AM CDT Temperature 36.7 C (98.1 F) 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 Respiratory Rate 16 07/25/2023 9:01 AM CDT Oxygen Saturation 97% 07/25/2023 9:01 AM CDT Inhaled Oxygen Concentration - - Weight 125.6 kg (277 lb) 04/22/2025 8:55 AM CDT Height 215.9 cm (7' 1) 04/22/2025 8:55 AM CDT Body Mass Index 26.96 04/22/2025 8:55 AM CDT Plan of Treatment Health Maintenance Due Date Last Done Comments HIV for age 15-65 1992 Hepatitis C screening for ag e 18-79 1995 Pneumococcal series for age 6-49 (1 of 2 - PCV) 1996 Colonoscopy through age 75 2022 Influenza Vaccine (#1) 2025 2, 08/25/2020, 08/17/2019, Additional history exists BMI (ht and wt on same day) for age 18+ 04/22/2026 04/22/2025, 03/21/2023, 05/07/2021, Additional history exists Depression screening for age 12+ 04/24/2026 04/24/2025, 04/22/2025, 02/05/2025, Additional history exists Lipids for age 45-75 01/02/2029 01/03/2024, 10/30/19 Tetanus booster 12/10/2029 12/10/2019, 06/16, 09/20/2017, Additional history exists RSV vaccine for adults or (1 - 1-dose 75+ series) 2052 Hepatitis B series for 19+ Completed 08/08, 05/07/2008, 03/25/2008 COVID-19 vaccine series Completed 02/27/20, 09/06/2023, 08/14/2022, Additional history exists Procedures Procedure Name Priority Date/Time Associated Diagnosis Comments LIPID PANEL Routine 01/03/2024 9:13 AM CDT BRITTANY (generalized anxiety disorder) from Last 3 Months or Most Recently Relevant to Health Maintenance Results * LIPID PANEL (01/03/2024 9:13 AM CDT) CHOLESTEROL,TOTAL 166 100 - 199 mg/dL 01/03/2024 4:41 PM CDT [facility] Comment: Cholesterol, Total Reference Ranges Desirable <200 mg/dL Borderline 200-239 mg/dL High >=240 mg/dL TRIGLYCERIDES 73 <150 mg/dL 01/03/2024 4:[address] [facility] HDL CHOLESTEROL 58 >40 mg/dL 4:41 PM CDT [facility] NON-HDL CHOLESTEROL 108 <145 mg/dl 01/03/2024 4:41 PM CDT [facility] CHOL/HDL RATIO 2.86 <4.50 01/03/2024 4:41 PM CDT [facility] LDL CHOLESTEROL 93 <=130 mg/dL 01/03/2024 4:41 PM CDT [facility] VLDL CHOLESTEROL 15 <=30 mg/dL 01/03/2024 4:41 PM CDT [facility] PROVIDER ORDERED STATUS RANDOM 01/03/2024 4:41 PM CDT [facility] Blood BLOOD SPECIMEN / Unknown Venipuncture / Unknown 01/03/2024 9:13 AM CDT 01/03/2024 9:14 AM CDT us Renu Hoyos NP CHEMISTRY Final Result [facility] [address] [place] [address], [place] from Last 3 Months or Most Recently Relevant to Health Maintenance Insurance [facility] [employer] Care Teams Fourth Mate Relationship Specialty Start Date End Date Jaime Jon MD [address] [place] [phone] PCP - General Family Practice 09/20/17
--- NOTE | 2025-07-06 10:28 | ED.GENADULT ---
HPI - General Adult General Date Seen: 07/06/25 Chief complaint: Shortness of Breath/Dyspnea Stated complaint: Shortness of breath Time Seen by Provider: 07/06/25 10:27 History of Present Illness HPI narrative: 50-year-old gentleman with a history of DVT/PE, history of aortic dissection, paroxysmal AFib Marfan syndrome, left nephrectomy, pectus excavatum, hypertension, anxiety, PTSD, presenting to the ER today with his . He has been ill for about 2 days, since Monday. Symptoms started with nausea, fever. Beginning Monday started having vomiting and has had a couple of episodes of nonbilious, nonbloody vomiting. He is not having any diarrhea. In fact no bowel movements at all and he can not remember how many days it has been since he had any bowel movement. He is having a little bit of abdominal pain, more on the left side than anywhere else. He has also had a cough but his really had noticed any trouble coughing until today. also notes that this morning he seemed to be much more short of breath than normal and also seemed a little bit confused and disoriented which is not normal for him. He is not having any chest pain. Cough is largely nonproductive. He has no known sick exposures. No swelling in his legs. 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 and has chronic deficit of his pulse in his left hand Related Data Home Medications ?Medication ?Instructions ?Recorded ?Confirmed buspirone 30 mg tablet 30 mg PO BID 01/25/24 07/06/25 desvenlafaxine succinate 100 mg 100 mg PO DAILY 01/25/24 07/06/25 tablet,extended release 24 hr propranolol 60 mg capsule,24 60 mg PO DAILY PRN 01/25/24 07/06/25 hr,extended release aripiprazole 5 mg tablet 10 mg PO QDAY 02/26/25 07/06/25 bupropion HCl 300 mg 24 hr tablet, 300 mg PO QAM 02/26/25 07/06/25 extended release (Wellbutrin XL) gabapentin 300 mg capsule 600 mg PO BID 02/26/25 07/06/25 Previous Rx's ?Medication ?Instructions ?Recorded scopolamine base 1 mg over 3 days 1 patch transdermal Q72H PRN 10/30/24 transdermal patch motion sickness #4 ea clopidogrel 75 mg tablet 75 mg PO QDAY #90 tabs 02/26/25 losartan 50 mg tablet 50 mg PO QDAY #90 tabs 02/26/25 Allergies Allergy/AdvReac Type Severity Reaction Status Date / Time fentanyl AdvReac Intermediate Vomiting Verified 07/06/25 10:28 [facility] Medical History Marfan syndrome ?Q87.40 - Marfan syndrome, unspecified (ICD-10) Aneurysm ?I72.9 - Aneurysm of unspecified site (ICD-10) DVT (deep venous thrombosis) (2003) ?I82.409 - Acute embolism and thrombosis of unspecified deep veins of unspecified lower extremity (ICD-10) Pulmonary embolism (2003) ?I26.99 - Other pulmonary embolism without acute cor pulmonale (ICD-10) Pericarditis ?I31.9 - Disease of pericardium, unspecified (ICD-10) Aortic dissection ?I71.00 - Dissection of unspecified site of aorta (ICD-10) Surgical History History of left nephrectomy ?Z90.5 - Acquired absence of kidney (ICD-10) History of cardiovascular surgery (2004) ?Z98.890 - Other specified postprocedural states (ICD-10) S/P vasectomy (05/20/20) ?Z98.52 - Vasectomy status (ICD-10) History of spinal surgery (2020) ?Z98.890 - Other specified postprocedural states (ICD-10) History of eye surgery ?Z98.890 - Other specified postprocedural states (ICD-10) Family History Mother Thyroid cancer Breast cancer Father Raynauds syndrome Son Autism Social History What is your current living situation?: I presently have a place to live Problems where you live: no known problems In the past 12 months, utilities in danger of being shut off: no In past 12 months, lack of transportation kept you from medical appts, meetings, work, or getting things needed for daily living: no In the past 12 mos, have been you worried that your food would run out before you had money to buy more?: never true In the past 12 mos, the food you bought just didn't last and you didn't have money to buy more?: never true Smoking Status: Never smoker Second hand tobacco smoke exposure: No How often do you have a drink containing alcohol: never AUDIT-C Alcohol total score: 0 Non-prescribed substance use: denies use How often does anyone, including family, friends and others, physically hurt you: never How often does anyone, including family, friends and others, insult or talk down to you: never How often does anyone, including family, friends and others, threaten you with harm: never How often does anyone, including family, friends and others, scream or curse at you: rarely Health Related Social Needs: Other personal risk factors, not elsewhere classified (Z91.89) Exam Narrative: Exam Narrative: Constitutional: Appears well-developed and well-nourished. Body habitus consistent with Marfan's. Alert. Conversant. Non toxic. Hypoxic to 85% in triage but satting in the 90s on nasal cannula. Respirations are overall on labored. HENT: Head: Atraumatic. Nose: Nose normal. Mouth/Throat: Oral mucosa is clear and moist. no trismus. Pharynx normal. Tonsils symmetric. No tonsillar enlargement, erythema, or exudate. Eyes: Conjunctivae normal. EOM normal. Pupils equal, round, and reactive to light. No scleral icterus. Neck: Normal range of motion. Neck supple. No tracheal deviation present. No JVD Cardiovascular: Normal rate, regular rhythm. No gallop. No friction rub. No murmur heard. He does have bilateral radial pulses but diminished on the left (is chronic, per patient) artery pulses Pulmonary/Chest: Effort normal. No stridor. No respiratory distress. No wheezes. Scares right> left rales. No rhonchi . No tenderness. Multiple healed chest scars. Abdominal: Soft. Bowel sounds normal. No distension. No mass. Left cervical area and left mid abdominal tenderness. No rebound. No guarding. Musculoskeletal: RUE: Normal range of motion. No tenderness. No deformity LUE: Normal range of motion. No tenderness. No deformity RLE: Normal range of motion. No edema. No tenderness. No deformity LLE: Normal range of motion. No edema. No tenderness. No deformity Neurological: Alert and oriented to person, place, and time. Normal strength. CN II-VII intact. No sensory deficit. GCS eye subscore is 4. GCS verbal subscore is 5. GCS motor subscore is 6. Normal coordination Skin: Skin is warm and dry. No rash noted. No pallor. Normal capillary refill. Psychiatric: Normal mood. Normal affect. Const: Vital Signs, click to edit/add: Vital Signs - 24 hr 07/06/25 10:23 07/06/25 10:38 07/06/25 10:39 Temperature 100.7 F H Pulse Rate 80 81 Pulse Rate [Right Pulse Oximeter] 80 Respiratory Rate 22 Blood Pressure 175/86 H Blood Pressure [Ri ght Upper Arm] 187/84 H Pulse Oximetry 85 L 91 90 Oxygen Delivery Me thod Room Air Nasal Cannula Oxygen Flow Rate 3 07/06/25 10:45 07/06/25 10:49 07/06/25 11:00 Temperature Pulse Rate 78 81 76 Pulse Rate [Right Pulse Oximeter] Respiratory Rate 32 H 27 H Blood Pressure 170/86 H Blood Pressure [Ri ght Upper Arm] Pulse Oximetry 91 91 93 Oxygen Delivery Me thod Nasal Cannula Oxygen Flow Rate 3 07/06/25 11:01 07/06/25 11:15 07/06/25 11:30 Temperature Pulse Rate 78 79 Pulse Rate [Right Pulse Oximeter] Respiratory Rate 28 H 33 H 33 H Blood Pressure 169/81 H Blood Pressure [Ri ght Upper Arm] Pulse Oximetry 92 92 Oxygen Delivery Me thod Oxygen Flow Rate 07/06/25 11:35 07/06/25 11:45 07/06/25 11:50 Temperature Pulse Rate 75 77 Pulse Rate [Right Pulse Oximeter] Respiratory Rate 30 H 32 H 30 H Blood Pressure 169/83 H Blood Pressure [Ri ght Upper Arm] Pulse Oximetry 87 L 90 Oxygen Delivery Me thod Nasal Cannula Oxygen Flow Rate 3 07/06/25 12:00 07/06/25 12:15 07/06/25 12:30 Temperature Pulse Rate 80 79 78 Pulse Rate [Right Pulse Oximeter] Respiratory Rate 33 H 29 H 32 H Blood Pressure Blood Pressure [Ri ght Upper Arm] Pulse Oximetry 91 94 94 Oxygen Delivery Me thod OxyMask Oxygen Flow Rate 10 07/06/25 12:35 Temperature Pulse Rate 80 Pulse Rate [Right Pulse Oximeter] Respiratory Rate 29 H Blood Pressure Blood Pressure [Ri ght Upper Arm] Pulse Oximetry 94 Oxygen Delivery Me thod Oxygen Flow Rate Course Course ED Course: Kidney function came back abnormal. Contacted [facility]. Recheck-nurses noted was a bit more hypoxic satting in the 80s on nasal cannula so they switched him to OxyMask and sats came up. I recheck the patient. Mental status is normal. First rate in the 20s but nonlabored. This point not requiring BiPAP for intubation. Updated patient and about renal function. They agree with transfer. Reevaluation(s) Reevaluation #1: I reviewed the CT images of the noncontrast CTs. I think there are infiltrates suggestive of possible pneumonia (also may be pulmonary edema?. Will treat with antibiotics for community-acquired pneumonia. Rocephin and Zithromax. I do not see any obvious hydronephrosis. Awaiting Radiology interpretation. 1330 discussed with rod finisher at [facility]. Dr. Santos. They are not accepting yet. They want repeat BMP, repeat trop, VBG and an additional L of crystalloid and then we are to call them back. Repeat labs ordered. Contacted lab for immediate lab draw. 1 L of LR ordered. Vital Signs Vital signs: Initial Vital Signs Temperature 100.7 F H 07/06/25 10:23 Temperature Source Temporal Artery Scan 07/06/25 10:23 Pulse Rate 80 07/06/25 10:23 Pulse Rhythm Regular 07/06/25 10:23 Pulse Strength 3+ Normal 07/06/25 10:23 Respiratory Rate 22 07/06/25 10:23 Blood Pressure 187/84 H 07/06/25 10:23 Blood Pressure Mean 118 H 07/06/25 10:23 Blood Pressure Position Sitting 07/06/25 10:23 Pulse Oximetry 85 L 07/06/25 10:23 Oxygen Delivery Method Room Air 07/06/25 10:23 Vital Signs Temperature 100.7 F H 07/06/25 10:23 Pulse Rate 80 07/06/25 10:23 Respiratory Rate 22 07/06/25 10:23 Blood Pressure 187/84 H 07/06/25 10:23 Pulse Oximetry 85 L 07/06/25 10:23 Oxygen Delivery Method Room Air 07/06/25 10:23 Temperature 100.7 F H 07/06/25 10:23 Pulse Rate 80 07/06/25 12:35 Respiratory Rate 29 H 07/06/25 12:35 Blood Pressure 169/83 H 07/06/25 11:50 Pulse Oximetry 94 07/06/25 12:35 Oxygen Delivery Method OxyMask 07/06/25 12:15 Oxygen Flow Rate 10 07/06/25 12:15 Medications Administered Medications: Discontinued Medications Generic Name Dose Route Start Last Admin Trade Name Ney PRN Reason Stop Dose Admin Acetaminophen 1,000 mg 07/06/25 14:28 07/06/25 14:42 Acetaminophen 500 Mg Tablet PO 07/06/25 14:29 1,000 mg ONCE ONE Administration Albuterol/Ipratropium 1 neb 07/06/25 10:50 07/06/25 11:00 Iprat-Albut 0.5-2.5 Mg/3 Ml Neb IH 07/06/25 10:51 1 neb ONCE ONE Administration Sodium Chloride 1,000 mls @ 1,000 mls/hr 07/06/25 11:00 07/06/25 13:08 0.9 % Sodium Chloride 1000 Ml IV 07/06/25 11:59 Infused .Q1H GRACE Infusion Ceftriaxone Sodium 1 gm/ 100 mls @ 200 mls/hr 07/06/25 13:19 07/06/25 14:36 Sodium Chloride IVPB 07/06/25 13:20 Infused ONCE ONE Infusion Azithromycin 500 mg/ Sodium 255 mls @ 255 mls/hr 07/06/25 13:19 07/06/25 14:37 Chloride IVPB 07/06/25 13:20 255 mls/hr ONCE ONE Administration Lactated Ringer's 1,000 mls @ 1,000 mls/hr 07/06/25 13:27 07/06/25 13:55 Lactated Ringers 1000 Ml IV 07/06/25 14:26 1,000 mls/hr .Q1H ONE Administration Ondansetron HCl 4 mg 07/06/25 10:50 07/06/25 11:50 Ondansetron 2 Mg/Ml Inj IVP 07/06/25 10:51 4 mg ONCE ONE Administration Medical Decision Making MDM Narrative Medical decision making narrative: 1. Respiratory. Patient presents with fever, cough that began this morning. At triage she is hypoxic to the mid 80s initially sats came up to the 90s on nasal cannula but he then did desat down into the 80s and was placed on OxyMask at 10 L. He is breathing in the mid 20s but is not labored or looking distressed. Mental status is normal. At this point no evidence for hypercarbia. At this point I do not think he requires escalation 2 positive-pressure ventilation with BiPAP or endotracheal intubation. Differential for his hypoxia is broad. Consider possible PE. He does have a distant history of PE about 20 years ago and is no longer on anticoagulation. I initially ordered a CT chest PE protocol but this had to be canceled because the patient has an acute kidney injury and contrast would be detrimental drink renal function. COVID/influenza/RSV negative by PCR. Consider possible community-acquired pneumonia. Based on my read of his noncontrast chest CT I think there are multi focal infiltrates, started on Rocephin and Zithromax for possible community-acquired pneumonia. VBG shows 2. Cardiac. Patient not having any chest pain but he has been nauseous, having abdominal pain, fever, cough. EKG shows nonspecific changes but no acute signs of hyperkalemia and no definite change compared to March. Troponin is abnormal at 0.24. Suspect this is probably related to renal failure rather than acute coronary syndrome. And terminal proBNP is quite elevated at 26,[address] shows RUL and RML infiltrates. Interpretation from Radiology suggest possible unilateral pulmonary edema which could be possible given the patient's kidney failure. However, I think more likely in the setting of fever, cough this morning, this represents pneumonia. Patient received 2 L of crystalloid here in the ER 3. Renal. Has acute kidney failure. Baseline creatinine seems to be between 1 and 2.0. In March it was 1.6. Today creatinine is 8.2 and BUN is 91. Unclear cause. CT scan abdomen pelvis to look for post renal obstruction of his solitary right kidney shows[]. IV fluids administered. Repeat BMP after 2 L of fluid shows slight improvement in potassium down to 5.4. Creatinine still above 8. He has not made any urine here in the ER despite 2 L of crystalloid. Bladder scan shows approximately 9-12 mL of urine in the bladder and bladder does look relatively decompressed on CT scan. Has associated hyperkalemia with potassium of 5.9. No associated EKG changes. VBG does show metabolic acidosis with pH is 7.22 and a pCO2 48. After 2 L of crystalloid, still not making urine. Bladder scan shows volume in the bladder about 10 mL. 4. Infectious disease. On antibiotics for community-acquired pneumonia. Blood cultures pending. Lactic acid is normal at 1.2. Antibiotics for community-acquired pneumonia. He has been having some nausea and vomiting with some mild left upper quadrant tenderness. CT scan of his belly does not show any clear infectious etiology but, curiously, shows small amount of free pelvic fluid. Unclear etiology for the pelvic fluid. No clear evidence for extravasation but scan is limited by lack of IV contrast and contrast is contraindicated by his renal failure. Tylenol p.o. for fever. 5. Heme. He is not currently on any anticoagulants or antiplatelets. Hemoglobin is 13.3. Platelet count 239. INR 1.1. 6. Vascular. Has a history of Marfan's with multiple previous grafts. He is not having any back pain or clear symptoms attributable to a new dissection but with acute renal failure, concern is he that he might have dissected off the right renal artery. My CT scan is limited by lack of IV contrast. 7. Disposition. Patient is apparently gets a lot of his medical care through the [facility] system, according to he and his . We did contact [facility] transfer system when we initially discovered the patient's acute renal failure. It took several of conversations with with the [facility] doctors. Ultimately patient accepted to the MICU at [facility] by Dr. Soria Lab Data Labs: Lab Results 07/06/25 07/06/25 07/06/25 Range/Units 11:20 11:35 13:40 WBC 9.21 (4.50-11.00) K/uL RBC 4.84 (4.30-5.90) m/uL Hgb 13.3 L (13.5-17.5) gm/dL Hct 39.2 (37.0-53.0) % MCV 81 (80-100) fL MCH 28 (26-34) pg MCHC 34 (32-36) gm/dL RDW Coeff of [place] 13.0 (11.5-15.5) % Plt Count 239 (140-440) K/uL Neut % (Auto) 86.0 H (42.0-72.0) % Lymph % (Auto) 6.4 L (20-44) % [place] % (Auto) 6.4 (0.0-11.0) % Eos % (Auto) 0.3 (0.0-7.0) % Baso % (Auto) 0.7 (0.0-3.0) % Neut # (Auto) 7.90 H (1.7-7.0) K/uL Lymph # (Auto) 0.60 L (0.90-2.90) K/uL [place] # (Auto) 0.60 (0.00-0.90) K/UL Eos # (Auto) 0.03 (0.00-0.50) K/uL Baso # (Auto) 0.06 (0.00-0.30) K/uL Abs Immat Gran (auto) 0.02 (0.00-0.30) K/uL Imm/Tot Granulo (auto) 0.2 % INR 1.10 (0.91-1.10) VBG pH 7.220 L* (7.32-7.43) VBG pCO2 48 (40-50) mmHG VBG pO2 < 30.1 (25-47) mmHG VBG HCO3 20 L (21-28) mmol/L Sodium 130 L 132 L (135-149) mmol/L Potassium 5.9 H 5.4 H (3.6-5.1) mmol/L Chloride 95 L 96 (96-114) mmol/L Carbon Dioxide 20 20 (20-32) mmol/L Anion Gap 15 16 H (7-15) mEq/L BUN 91 H 94 H (5-24) mg/dL Creatinine 8.2 H 8.2 H (0.5-1.5) mg/dL Estimated Creat Clear 16.75 16.75 Estimated GFR 7 7 ml/min Glucose 86 79 (60-115) mg/dL Lactate 1.2 (0.5-1.9) mmol/L Calcium 9.1 8.7 (8.4-10.6) mg/dL Total Bilirubin 0.9 (0.1-1.5) mg/dL AST 34 (12-35) U/L ALT 26 (4-50) U/L Alkaline Phosphatase 111 (40-150) U/L Troponin I 0.24 H* 0.29 H* (0.01-0.04) ng/mL NT-Pro-B Natriuret Pep 29333 H (See Note) pg/mL Total Protein 7.7 (6.0-8.3) g/dL Albumin 4.5 (3.3-5.0) g/dL Lipase 133 (23-300) U/L SARS-CoV-2 (PCR) Negative SARS-CoV-2 (Negative) Influenza Type A (PCR) Negative PCR FLU A (Negative) Influenza Type B (PCR) Negative PCR FLU B (Negative) RSV (PCR) Negative PCR RSV (Negative) Imaging Data CT Chest/Ab/Pelvis: Attestation: I have reviewed the pertinent imaging results. Radiologist's impression: Impression : 1. Free fluid identified in the pelvic peritoneal cavity. 2. Patchy areas of alveolar consolidation predominantly involving the right lung; concerning for unilateral pulmonary edema. 3. Pectus excavatum deformity. 4. S/p cholecystectomy. 5. Multiple vascular grafts identified involving the ascending and descending thoracic aorta with grafts extending into the abdominal visceral arteries. ECG Data Attestation: I personally reviewed and interpreted this ECG as follows: Interpretation: Sinus rhythm with first-degree AV block Rate was 84 MO interval 210 Normal QRS axis. Nonspecific ST and T-wave changes. No definite ST segment elevation. Artifact versus questionable less than [address] elevation in lead V2. Unchanged compared to 5 QT 394, QTC 465 Discharge Plan Discharge Clinical Impression: Acute renal failure, Acute hyperkalemia, Metabolic acidosis, Pneumonia, Hypoxia Patient Disposition: Xfer [facility] Prescriptions: No Action buspirone 30 mg tablet 30 mg PO BID desvenlafaxine succinate 100 mg tablet extended release 24 hr 100 mg PO DAILY propranolol 60 mg capsule,extended release 24 hr 60 mg PO DAILY PRN aripiprazole 5 mg tablet 10 mg PO QDAY gabapentin 300 mg capsule 600 mg PO BID Rx Instructions: in addition to 300mg each afternoon bupropion HCl [Wellbutrin XL] 300 mg tablet extended release 24 hr 300 mg PO QAM clopidogrel 75 mg tablet 75 mg PO QDAY Qty: 90 3RF losartan 50 mg tablet 50 mg PO QDAY Qty: 90 3RF scopolamine base 1 mg over 3 days patch 3 day 1 patch transdermal Q72H PRN (Reason: motion sickness) Qty: 4 1RF Stand Alone Forms: [employer] Info Instructions Procedures ABG Interpretation ABG Results: 07/06/25 13:40 VBG pH 7.220 L* VBG pCO2 48 VBG pO2 < 30.1 VBG HCO3 20 L
[2025-07-06] MEDS: IPRAT-ALBUT 0.5-2.5 MG/3 ML NEB 1 NEB IH (11:00)
[2025-07-06 11:45] LABS: Lactate* 1.2 mmol/L (0.5-1.9)
[2025-07-06 11:46] LABS: Hematocrit* 39.2 % (37.0-53.0); Hemoglobin* 13.3 gm/dL (13.5-17.5); Immature Granulocytes Abs Auto 0.02 K/uL (0.00-0.30); Immature Granulocytes Pct Auto 0.2 %; Mean Corpuscular HGB Conc 34 gm/dL (32-36); Mean Corpuscular Hemoglobin 28 pg (26-34); Mean Corpuscular Volume 81 fL (80-100); RDW Coefficient of Variation % 13.0 % (11.5-15.5); Red Blood Count* 4.84 m/uL (4.30-5.90); White Blood Count* 9.21 K/uL (4.50-11.00)
[2025-07-06 11:47] LABS: Lymphocytes Absolute Auto 0.60 K/uL (0.90-2.90); Slide Review Reflex No
[2025-07-06] MEDS: ONDANSETRON 2 MG/ML inj 4 MG IVP (11:50)
[2025-07-06 12:15] LABS: Albumin* 4.5 g/dL (3.3-5.0); Chloride* 95 mmol/L (96-114)
[2025-07-06 12:16] LABS: Potassium* 5.9 mmol/L (3.6-5.1); Sodium* 130 mmol/L (135-149)
[2025-07-06 12:18] LABS: Alanine Aminotransferase* 26 U/L (4-50); Alkaline Phosphatase* 111 U/L (40-150); Anion Gap 15 mEq/L (7-15); Aspartate Amino Transferase* 34 U/L (12-35); Bilirubin Total* 0.9 mg/dL (0.1-1.5); Blood Urea Nitrogen* 91 mg/dL (5-24); Carbon Dioxide* 20 mmol/L (20-32); Creatinine* 8.2 mg/dL (0.5-1.5); Est. Creatinine Clearance* 16.75; Estimated Glomerular Filt Rate 7 ml/min
[2025-07-06 12:19] LABS: Calcium* 9.1 mg/dL (8.4-10.6); Glucose* 86 mg/dL (60-115); INR 1.10 (0.91-1.10); Prothrombin Time 15.0 Seconds; Total Protein* 7.7 g/dL (6.0-8.3)
[2025-07-06 12:26] LABS: PCR FLU A Negative PCR FLU A (Negative); PCR FLU B Negative PCR FLU B (Negative); PCR RSV Negative PCR RSV (Negative); SARS PCR* Negative SARS-CoV-2 (Negative)
[2025-07-06 12:34] LABS: NT Pro B Type NatriureticPept* 26000 pg/mL (See Note)
--- NOTE | 2025-07-06 12:36 | CRLHL7_ITS ---
For Patients: As a result of the Century Cures Act, medical imaging exams and procedure reports are released immediately into your electronic medical record. You may view this report before your referring provider. If you have questions, please contact your health care provider. INDICATION: Dyspnea; hypoxia; fever; vomiting; left upper quadrant abdominal pain; patient has Marfan`s and previous cardiovascular surgeries. COMPARISON: CT chest with intravenous contrast March 16, 2025; CT abdomen and pelvis with intravenous contrast March 16, 2025. TECHNIQUE: CT chest, abdomen and pelvis without intravenous contrast; coronal and sagittal reformats. FINDINGS: Patchy alveolar pulmonary infiltrates predominantly involving the right lung upper lobe as well as lower lobe right middle lobe; rule out unilateral pulmonary edema. Pectus excavatum deformity. No evidence of pleural effusion or chest wall pathology. Vascular surgery with multiple grafts from the ascending aorta as well as from the descending thoracic aorta into the abdominal visceral arteries. No discrete abnormal intra pulmonary nodular densities are identified. No focal hepatic or splenic pathology. No pancreatic pathology. Status post cholecystectomy. No adrenal pathology. Status post left nephrectomy. No retroperitoneal lymphadenopathy. Small amount of free fluid identified in the pelvic peritoneal cavity. Lack of intravenous contrast makes it difficult to evaluate for any other pathology. Impression : 1. Free fluid identified in the pelvic peritoneal cavity. 2. Patchy areas of alveolar consolidation predominantly involving the right lung; concerning for unilateral pulmonary edema. 3. Pectus excavatum deformity. 4. S/p cholecystectomy. 5. Multiple vascular grafts identified involving the ascending and descending thoracic aorta with grafts extending into the abdominal visceral arteries. Please note that all CT scans at this facility use dose modulation, iterative reconstruction, and/or weight-based dosing when appropriate to reduce radiation dose to as low as reasonably achievable. Dictated by Alisa Gonzalez MD @ 07/06/2025 1:33:53 PM (Electronically Signed)
[2025-07-06 13:47] LABS: HCO3 VBG 20 mmol/L (21-28); PCO2 VBG 48 mmHG (40-50); PO2 VBG < 30.1 mmHG (25-47)
[2025-07-06 13:49] LABS: pH VBG 7.220 (7.32-7.43)
[2025-07-06] MEDS: LACTATED RINGERS 1000 ML 1,000 ML IV (13:55)
[2025-07-06] MEDS: cefTRIAXone 1 GM in 0.9 % SODIUM CHLORIDE Mini-bag 100 ML IVPB (13:56)
[2025-07-06 14:14] LABS: Chloride* 96 mmol/L (96-114); Potassium* 5.4 mmol/L (3.6-5.1); Sodium* 132 mmol/L (135-149)
[2025-07-06 14:17] LABS: Blood Urea Nitrogen* 94 mg/dL (5-24); Creatinine* 8.2 mg/dL (0.5-1.5); Est. Creatinine Clearance* 16.75; Estimated Glomerular Filt Rate 7 ml/min
[2025-07-06 14:18] LABS: Anion Gap 16 mEq/L (7-15); Calcium* 8.7 mg/dL (8.4-10.6); Carbon Dioxide* 20 mmol/L (20-32); Glucose* 79 mg/dL (60-115)
[2025-07-06] MEDS: AZITHROMYCIN 500 MG in 0.9 % SODIUM CHLORIDE 250 ml 250 ML 255 MG IVPB (14:37)
[2025-07-06] MEDS: ACETAMINOPHEN 500 MG TABLET 1000 MG PO (14:42)
== END 2025-07-06 15:38 | disposition short-term general hospital (02) ==
PROVIDERS: Emergency Provider Emergency Medicine; PCP Family Medicine
DX: N17.9 Acute kidney failure, unspecified (principal); E87.5 Hyperkalemia; J18.9 Pneumonia, unspecified organism; R09.02 Hypoxemia; E87.29 Other acidosis
CPT/HCPCS: 36415; 71250; 74176; 80048; 80053; 81001; 82803; 83605; 83690; 83880; 84484; 85025; 85610; 87040; 87631; 96365; 96366; 96375; 99285; A9270; J0456; J0696; J2405; J7030; J7050; J7120

== ENCOUNTER 2025-07-06 15:15 | Outpatient (CLI) | payer OTHER, SELFPAY | END 2025-07-06 15:16 | disposition home or self-care (01) | LOC: AMB 07-07 14:16 | PROVIDERS: PCP Family Medicine; Visit Provider Emergency Medicine | DX: N17.9 Acute kidney failure, unspecified (principal); E87.5 Hyperkalemia; E87.20 Acidosis, unspecified; J18.9 Pneumonia, unspecified organism; R09.02 Hypoxemia | CPT/HCPCS: A0425; A0434 ==

== ENCOUNTER 2025-09-19 15:34 | Emergency (ER) | payer OTHER, SELFPAY ==
[2025-09-19 15:42] VITALS: BP 128/76; PULSE 86; RESP 20; TEMP 36.7; O2SAT 98; BMI 26.3
--- NOTE | 2025-09-19 16:47 | ED.EPISTAXIS ---
History of Present Illness General Chief Complaint: Epistaxis/Nosebleed Stated Complaint: nose bleed for past 4 hours Time Seen by Provider: 09/19/25 16:30 Source: patient Mode of arrival: ambulatory Limitations: no limitations History of Present Illness HPI Narrative: 50-year-old male with a notable history of Marfan syndrome and vascular grafts anticoagulated on Plavix and Eliquis presents to the ED with nosebleed for the past 4 hours. Has tried to apply pressure at home with no significant improvement. No trauma or injury, no vomiting. Has had nosebleeds before but never this severe. Does not seem to be improving with clamping performed in triage either. Has not had any vomiting. No black or tarry stools. No respiratory difficulty, no cardiac changes. He has had no recent changes in his medications. Review of the records shows that he gets regular blood work, most recent hemoglobin was less than 3 months ago, steadily in the 13 so. Normal platelet function. ROS notable for the bleeding from the right nostril only, otherwise denies times 12 systems today. Related Data Home Medications ?Medication ?Instructions ?Recorded ?Confirmed desvenlafaxine succinate 100 mg 100 mg PO DAILY 01/25/24 07/06/25 tablet,extended release 24 hr propranolol 60 mg capsule,24 60 mg PO DAILY PRN 01/25/24 07/06/25 hr,extended release aripiprazole 5 mg tablet 10 mg PO QDAY 02/26/25 07/06/25 gabapentin 300 mg capsule 600 mg PO BID 02/26/25 07/06/25 bupropion HCl 300 mg 24 hr tablet, 150 mg PO QAM 07/29/25 extended release (Wellbutrin XL) apixaban 5 mg tablet (Eliquis) 5 mg PO BID 09/19/25 09/19/25 Previous Rx's ?Medication ?Instructions ?Recorded scopolamine base 1 mg over 3 days 1 patch transdermal Q72H PRN 10/30/24 transdermal patch motion sickness #4 ea clopidogrel 75 mg tablet 75 mg PO QDAY #90 tabs 02/26/25 losartan 50 mg tablet 50 mg PO QDAY #90 tabs 02/26/25 cephalexin 500 mg capsule 500 mg PO Q8H #10 caps 09/19/25 Allergies Allergy/AdvReac Type Severity Reaction Status Date / Time fentanyl AdvReac Intermediate Vomiting Verified 07/06/25 10:28 [facility] Medical History Marfan syndrome ?Q87.40 - Marfan syndrome, unspecified (ICD-10) Aneurysm ?I72.9 - Aneurysm of unspecified site (ICD-10) DVT (deep venous thrombosis) (2003) ?I82.409 - Acute embolism and thrombosis of unspecified deep veins of unspecified lower extremity (ICD-10) Pulmonary embolism (2003) ?I26.99 - Other pulmonary embolism without acute cor pulmonale (ICD-10) Pericarditis ?I31.9 - Disease of pericardium, unspecified (ICD-10) Aortic dissection ?I71.00 - Dissection of unspecified site of aorta (ICD-10) Surgical History History of left nephrectomy ?Z90.5 - Acquired absence of kidney (ICD-10) History of cardiovascular surgery (2004) ?Z98.890 - Other specified postprocedural states (ICD-10) S/P vasectomy (05/20/20) ?Z98.52 - Vasectomy status (ICD-10) History of spinal surgery (2020) ?Z98.890 - Other specified postprocedural states (ICD-10) History of eye surgery ?Z98.890 - Other specified postprocedural states (ICD-10) Family History Mother Thyroid cancer Breast cancer Father Raynauds syndrome Son Autism Social History What is your current living situation?: I presently have a place to live Problems where you live: no known problems In the past 12 months, utilities in danger of being shut off: no In past 12 months, lack of transportation kept you from medical appts, meetings, work, or getting things needed for daily living: no In the past 12 mos, have been you worried that your food would run out before you had money to buy more?: never true In the past 12 mos, the food you bought just didn't last and you didn't have money to buy more?: never true Smoking Status: Former smoker Second hand tobacco smoke exposure: No How often do you have a drink containing alcohol: 2-3 times a week How many standard drinks containing alcohol do you have on a typical day: 1 or 2 How often do you have six or more drinks on one occasion: Never AUDIT-C Alcohol total score: 3 Non-prescribed substance use: denies use How often does anyone, including family, friends and others, physically hurt you: never How often does anyone, including family, friends and others, insult or talk down to you: never How often does anyone, including family, friends and others, threaten you with harm: never How often does anyone, including family, friends and others, scream or curse at you: rarely Health Related Social Needs: Other personal risk factors, not elsewhere classified (Z91.89) Exam Const: Vital Signs, click to edit/add: Vital Signs - 24 hr 09/19/25 15:42 Temperature 98.1 F Pulse Rate [Pulse Oximeter] 86 Respiratory Rate 20 Blood Pressure [Ri ght Upper Arm] 128/89 Pulse Oximetry 98 Oxygen Delivery Me thod Room Air Documenting provider has reviewed patient's vital signs: yes Common normals: no apparent distress Other: Friendly and calm. Obvious bleeding from right Nare. No signs of facial injury or trauma. HENMT: Common normals: normocephalic, moist oral mucous membranes and oropharynx normal Head and scalp: normocephalic Other: Clamp and packing removed, still having active bleeding. It actually does appear to be right at the middle of the anterior septum which was surprising with the amount of bleeding that I was seeing. I do not see a posterior source. Left Vieira appears normal. Eye: Common normals: conjunctivae normal General eye: normal appearance of both eyes Conjunctiva: conjunctiva(e) normal Neck & C-Spine: General: normal visual inspection Resp: Common normals: normal respiratory effort Effort & inspection: able to speak in complete sentences Cardio: Common normals: regular rate and regular rhythm Rate: regular rate Rhythm: regular rhythm Other: Regular rate and rhythm palpated through right radial pulse Psych: Attitude: engaged Activity/motor behavior: appropriate eye contact Insight: insight good Judgement: judgment good Skin: Common normals: no rashes or lesions noted General skin exam: no rashes or lesions noted Course Course ED Course: 50-year-old male on dual anticoagulation presenting with acute nosebleed right side, not improving with packing and clamp placed in triage. Does appear to be fairly brisk, I look in the trash can just from the short wait prior to being seen and there is probably about 200 mL. Because of this, decision made to go straight to nasal packing. 7.5 cm anterior-posterior nasal packing toes and do even though it is an anterior bleed due to the patient's large nose size and significant height. This was inserted into the right near, well tolerated and was inflated with a total of 6 mL. Patient did have immediate cessation of bleeding and will be monitored for the next 20 minutes and rechecked. No indications for blood work today unless bleeding cannot be stopped. Reevaluation(s) Time of Reevaluation #1: 17:05 Reevaluation #1: Re-evaluated patient after about 25 minutes. There has been no return of bleeding. He nose reexamine with no signs of bleeding from the opposite near, down the throat or any other areas. Counseled patient on what to expect. I did let 1 mL out of the balloon so a total of [address] and he still has excellent control with that. Counseled on use of Tylenol for pain, melatonin or other gentle tetm-aqy-[id number] sleep aids if needed. Do not use CPAP while nasal packing is in place. Call Dr. Crandall office in the morning for visit on Monday. Office will be unavailable until then. Phone number provided in discharge instructions. Counseled on alarm symptoms and indications to return to the ED. Written instructions provided, all questions answered. Alarm symptoms reviewed. Vital Signs Vital signs: Initial Vital Signs Temperature 98.1 F 09/19/25 15:42 Temperature Source Temporal Artery Scan 09/19/25 15:42 Pulse Rate 86 09/19/25 15:42 Respiratory Rate 20 09/19/25 15:42 Blood Pressure 128/89 09/19/25 15:42 Blood Pressure Mean 102 09/19/25 15:42 Blood Pressure Position Sitting 09/19/25 15:42 Pulse Oximetry 98 09/19/25 15:42 Oxygen Delivery Method Room Air 09/19/25 15:42 Vital Signs Temperature 98.1 F 09/19/25 15:42 Pulse Rate 86 09/19/25 15:42 Respiratory Rate 20 09/19/25 15:42 Blood Pressure 128/89 09/19/25 15:42 Pulse Oximetry 98 09/19/25 15:42 Oxygen Delivery Method Room Air 09/19/25 15:42 Temperature 98.1 F 09/19/25 15:42 Pulse Rate 86 09/19/25 15:42 Respiratory Rate 20 09/19/25 15:42 Blood Pressure 128/89 09/19/25 15:42 Pulse Oximetry 98 09/19/25 15:42 Oxygen Delivery Method Room Air 09/19/25 15:42 Discharge Plan Discharge Clinical Impression: Acute anterior epistaxis Patient Disposition: Home, Self-Care Condition: Improved Instructions: Nosebleed (ED) Additional Instructions: As we discussed, risk of return of bleeding is high because of the blood thinners that you take. I do not want you to stop your blood thinners at this time. You will not be able to use her CPAP device while your nasal packing is in place. Sometimes the balloon in that device will fail and you will suddenly feel a lot less pressure in the nose. If the balloon falls out if this happens, it is okay but if the bleeding restarts, I want you to come back to the emergency room. Try to leave that balloon in place until Monday. On Monday, please call Dr. Crandall office 1st thing in the morning to be seen. If he does not have appointments available, please schedule with the primary care team to have the balloon removed and rechecked. You are at higher risk of repeat bleeding and I think it would be better if you were seen by Dr. Crandall if at all possible. Please call [phone]. The packing can create increased risk of infection which can be very dangerous. Because of this, would like to start you on an antibiotic. Please pick this up no later than tomorrow afternoon and take 1 pill 3 times daily. Starting it sooner rather than later would be best. I noted the balloon can be uncomfortable, it is okay to use Tylenol 1000 mg every 6 hours as needed for discomfort. It is also okay to use melatonin, Benadryl, Unisom or other gentle lvhn-kvf-jxpthmr sleep aids if needed to help you sleep tonight. Activity Level: Activity as Tolerated Discharge Diet: Regular Prescriptions: New cephalexin 500 mg capsule 500 mg PO Q8H Qty: 10 0RF No Action desvenlafaxine succinate 100 mg tablet extended release 24 hr 100 mg PO DAILY propranolol 60 mg capsule,extended release 24 hr 60 mg PO DAILY PRN aripiprazole 5 mg tablet 10 mg PO QDAY gabapentin 300 mg capsule 600 mg PO BID Rx Instructions: in addition to 300mg each afternoon clopidogrel 75 mg tablet 75 mg PO QDAY Qty: 90 3RF losartan 50 mg tablet 50 mg PO QDAY Qty: 90 3RF Eliquis 5 mg tablet 5 mg PO BID scopolamine base 1 mg over 3 days patch 3 day 1 patch transdermal Q72H PRN (Reason: motion sickness) Qty: 4 1RF bupropion HCl [Wellbutrin XL] 300 mg tablet extended release 24 hr 150 mg PO QAM Follow Up/Referrals: Jaime Jon MD [Primary Care Provider, Family Practice] Stand Alone Forms: [facility] Info Instructions
--- OUTSIDE RECORDS SUMMARY | 2025-09-19 16:51 | XMS_ITS | Clinical Summary ---
Author Organization [employer] [facility] [email or web address] Address [address] [place] [address] Care Team Providers Care Senior Professional Services Consultant Name Role Phone Jaime Jon MD Primary Care Provider [phone] Allergies Active Allergy Reactions Criticality Noted Date Comments Fentanyl Vomiting 09/20/2017 Induced with hiccups Medications losartan (COZAAR) 50 mg tablet Take 25 mg by mouth once daily. Per [facility] discharge 07/18/25 0 2 Active medication order composer Medical Cannabis; 0.8 ml tincture taken once daily. 0 2 Active LORazepam (ATIVAN) 0.5 mg tabIndications :BRITTANY (generalized anxiety disorder) Take 1-2 Tablets (0.5-1 mg) by mouth once daily if needed for Anxiety. 20 Tablet 4 Active ARIPiprazole (Abilify) 10 mg tabletIndicati ons:Moderate episode of recurrent major depressive disorder (HC) Take 1 Tablet (10 mg) by mouth once daily. 90 Tablet 5 Active buPROPion (Wellbutrin XL) 150 mg Extended-Relea se tabletIndicati ons:Moderate episode of recurrent major depressive disorder (HC) Take 1 Tablet (150 mg) by mouth once daily. Total daily dose is 450 mg daily. 90 Tablet 5 Active desvenlafaxine succinate (Pristiq) 100 mg extended release tabletIndicati ons:BRITTANY (generalized anxiety disorder) Take 1 Tablet (100 mg) by mouth once daily in the morning. 90 Tablet 5 Active gabapentin (NEURONTIN) 300 mg capsuleIndicat ions:BRITTANY (generalized anxiety disorder) Take 1-2 Capsules (300-600 mg) by mouth 2 times daily if needed (anxiety). 120 Capsule 1 Active apixaban (Eliquis) 5 mg tablet Take 1 Tablet (5 mg) by mouth two times daily. Per [facility] discharge 07/18/25 Active carvediloL (Coreg) 25 mg tablet Take 1 Tablet (25 mg) by mouth two times daily. Per [facility] discharge 07/18/25 5 Active oxyCODONE 5 mg capsule Take 1 Capsule (5 mg) by mouth every 4 hours if needed for Pain. Per [facility] discharge 07/18/25 5 Active Sennosides (Senna) 8.6 mg cap 8.6 mg twice daily as needed for constipation. Per [facility] discharge 07/18/25 Active acetaminophen (TYLENOL) 500 mg capsule Take 2 Capsules (1,000 mg) by mouth every 6 hours if needed. Per [facility] discharge 07/18/25. Max acetaminophen dose: 4000mg in 24 hrs. Active clopidogreL (Plavix) 75 mg tablet Take 1 Tablet (75 mg) by mouth once daily. Per [facility] discharge 07/18/25 Active propranolol ER (INDERAL LA) 60 mg Cs24 Sustained-Rele ase capsule Take 60 mg by mouth once daily as needed for anxiety. Per [facility] discharge 07/18/25 Active Active Problems Problem Noted Date Diagnosed Date Recurrent major depressive disorder, in partial remission 02/05/2025 BRITTANY (generalized anxiety disorder) 02/05/2025 Marfan syndrome 05/08/2020 LVH (left ventricular hypertrophy) 05/08/2020 PVD (peripheral vascular disease) 05/08/2020 HTN (hypertension) 05/08/2020 S/p nephrectomy 05/08/2020 Encounters Date Type Department Care Team Description 08/22/2025 2:30 PM ARTIST MANAGER Telemedicine [facility] at [address] [place] [phone] Renu Hoyos NP Telehealth ([place]); Medication Management 08/21/2025 Travel 07/29/2025 Telephone [facility] at [address] [place] [phone] Renu Hoyos NP Care Coordination with Dr. Jon (Kidney Provider) 07/24/2025 1:30 PM CDT Telemedicine [address] [place] [phone] Renu Hoyos NP Telehealth; Medication Management 07/23/2025 Travel 07/22/[address] [place] [phone] Renu Hoyos, LIZZETTE Refill Request (Buspirone 10mg (90 Day Supply)/Bupropion 150MG (90 Day Supply)/Bupropion 300MG (90 Day Supply)) from Last 3 Months Immunizations Immunization Administration [...] PHQ-2 Answer Date Recorded PHQ-2 TOTAL SCORE 5 08/21/2025 Financial Resource Strain Answer Date R ecorded Difficulty of Paying Living Expenses Not on file 10/16/2021 Difficulty of Paying Living Expenses Not on file 10/16/2021 Sex and Gender Information Value Date Recorded Sex Assigned at Not on file Legal Sex Male 6:57 AM ARTIST MANAGER Gender Identity Not on file Sexual Orientation Not on file Obstetrics History Last Filed Vital Signs Vital Sign Reading Time Taken Comments Blood Pressure 125/77 04/22/2025 8:55 AM CDT Pulse 63 04/22/2025 8:55 AM CDT Temperature 36.7 C (98.1 F) 09/20/2017 2:35 PM ARTIST MANAGER Respiratory Rate 16 07/25/2023 9:01 AM CDT Oxygen Saturation 97% 07/25/2023 9:01 AM CDT Inhaled Oxygen Concentration - - Weight 125.6 kg (277 lb) 04/22/2025 8:55 AM CDT Height 215.9 cm (7' 1) 04/22/2025 8:55 AM CDT Body Mass Index 26.96 04/22/2025 8:55 AM CDT Plan of Treatment Upcoming Encounters Date Type Department Care Team (Late st Contact Info) Description 10/14/2025 2:00 PM ARTIST MANAGER Telemedicine [facility] at [address] [phone] Renu Hoyos, CANDY BAR ATTENDANT [address] [place] [address] [phone] Health Maintenance Due Date Last Done Comments HIV for age 15-65 1992 Hepatitis C screening for ag e 18-79 1995 Pneumococcal series for age 6-49 (1 of 2 - PCV) 1996 Colonoscopy through age 75 2022 COVID-19 vaccine series (2024- season) 2025 02/26/2025, 09/06/2023, 08/14/2022, Additional history exists Influenza Vaccine (#1) 2025 , 08/25/2020, 08/17/2019, Additional history exists BMI (ht and wt on same day) for age 18+ 04/22/2026 04/22/2025, 03/21/2023, 05/07/2021, Additional history exists Depression screening for age 12+ 08/21/2026 08/21/2025, 04/24/2025, 04/22/2025, Additional history exists Lipids for age 45-75 01/02/2029 01/03/2024, 10/30/19 24 Tetanus booster 12/10/2029 12/10/2019, 06/16, 09/20/2017, Additional history exists RSV vaccine for adults or (1 - 1-dose 75+ series) 2052 Hepatitis B series for 19+ Completed 08/08, 05/07/2008, 03/25/2008 Procedures Procedure Name Priority Date/Time Associated Diagnosis Comments LIPID PANEL Routine 01/03/2024 9:13 AM CDT BRITTANY (generalized anxiety disorder) from Last 3 Months or Most Recently Relevant to Health Maintenance Results * LIPID PANEL (01/03/2024 9:13 AM CDT) CHOLESTEROL,TOTAL 166 100 - 199 mg/dL 01/03/2024 4:41 PM CDT [facility] Comment: Cholesterol, Total Reference Ranges Desirable <200 mg/dL Borderline 200-239 mg/dL High >=240 mg/dL TRIGLYCERIDES 73 <150 mg/dL 01/03/2024 4:41 PM CDT [facility] HDL CHOLESTEROL 58 >40 mg/dL 4:41 PM CDT [facility] NON-HDL CHOLESTEROL 108 <145 mg/dl 01/03/2024 4:41 PM CDT [facility] CHOL/HDL RATIO 2.86 <4.50 01/03/2024 4:41 PM CDT [facility] LDL CHOLESTEROL 93 <=130 mg/dL 01/03/2024 4:41 PM CDT [facility] VLDL CHOLESTEROL 15 <=30 mg/dL 01/03/2024 4:41 PM CDT [facility] PROVIDER ORDERED STATUS RANDOM 01/03/2024 4:41 PM CDT [facility] Blood BLOOD SPECIMEN / Unknown Venipuncture / Unknown 01/03/2024 9:13 AM CDT 01/03/2024 9:14 AM CDT us Renu Hoyos NP CHEMISTRY Final Resu lt [facility] [address] [place] [phone], [place] from Last 3 Months or Most Recently Relevant to Health Maintenance Insurance [facility] [employer] Member Subscriber Plan / Payer (Ef fective 2017-Present) Name:Santosh Toro Relation to Subscriber:Employee Name:[id number] Date of :1998 (Home) Address: [address] [place] [id number] Payer ID:Not on file Group ID:Not on file Type:Not on file Address: [address] [place] [address] MEDICA CHOICE Care Teams Senior Professional Services Consultant Relationship Specialty Start Date End Date Jaime Jon MD [address] [place] [phone] PCP - General Family Practice 09/20/17
[2025-09-19 17:25] VITALS: PULSE 84; RESP 16; O2SAT 95
== END 2025-09-19 17:26 | disposition home or self-care (01) ==
PROVIDERS: Emergency Provider Family Medicine; PCP Family Medicine
DX: R04.0 Epistaxis (principal)
CPT/HCPCS: 30901; 99283

== ENCOUNTER 2025-09-24 07:58 | Outpatient (CLI) | payer OTHER, SELFPAY ==
[2025-09-24 09:30] LABS: Hematocrit* 34.9 % (37.0-53.0); Hemoglobin* 11.0 gm/dL (13.5-17.5); Mean Corpuscular HGB Conc 32 gm/dL (32-36); Mean Corpuscular Hemoglobin 28 pg (26-34); Mean Corpuscular Volume 87 fL (80-100); Red Blood Count* 4.00 m/uL (4.30-5.90); White Blood Count* 6.50 K/uL (4.50-11.00)
[2025-09-24 09:31] LABS: Slide Review Reflex No
[2025-09-24 09:33] LABS: Chloride* 98 mmol/L (96-114); Potassium* 4.6 mmol/L (3.6-5.1); Sodium* 140 mmol/L (135-149)
[2025-09-24 09:36] LABS: Anion Gap 14 mEq/L (7-15); Blood Urea Nitrogen* 21 mg/dL (5-24); Carbon Dioxide* 28 mmol/L (20-32); Creatinine* 1.1 mg/dL (0.5-1.5); Estimated Glomerular Filt Rate 83 ml/min
[2025-09-24 09:37] LABS: Calcium* 9.8 mg/dL (8.4-10.6); Glucose* 97 mg/dL (60-115)
== END 2025-09-24 07:59 | disposition home or self-care (01) ==
LOC: NPINS 07:59
PROVIDERS: PCP Family Medicine; Visit Provider Nurse Practitioner Family
DX: I10 Essential (primary) hypertension (principal); I71.60 Thoracoabdominal aortic aneurysm, without rupture, unspecified; R53.81 Other malaise; Q87.40 Marfan syndrome, unspecified; T82.598A Other mechanical complication of other cardiac and vascular devices and implants, initial encounter; Z95.828 Presence of other vascular implants and grafts
CPT/HCPCS: 80048; 83735; 84100; 85027